=== PATIENT | female | born 1960 | race Caucasian/White ===

== ENCOUNTER 2017-04-01 13:16 | Inpatient (IN) | payer OTHER ==
[~2017-04-01] VITALS: Ht 154.9 cm; Wt 97.0 kg
[~2017-04-01 13:16] MED LIST: CYCL-319 PO; HYDR-3498 PO; NITR-58 PO
--- NOTE | 2017-04-01 16:33 | RADRPT ---
PROCEDURE: XR Chest. CLINICAL INDICATION: Shortness of breath TECHNIQUE: Single frontal view of the chest was obtained. COMPARISON: None. FINDINGS: The aortic arch is calcified. The heart and mediastinum are within normal limits. The lungs are clear. There is no significant pleural effusion or pneumothorax. IMPRESSION: No acute disease. Aortic atherosclerosis. RPTAT: EE Physician Natali Date Time Electronically viewed and signed by Xavier Kwan Physician on 04/01/2017 16:33 /
[2017-04-01 16:42] LABS: BASOPHIL # 0.1 10^3/ul (0.0-0.1); BASOPHILS % 0.8 % (0.0-2.0); EOSINOPHILS # 0.2 10^3/ul (0.0-0.5); EOSINOPHILS % 2.9 % (0.0-7.0); HEMATOCRIT 35.8 % (37.0-47.0); HEMOGLOBIN 12.1 g/dl (12.0-16.0); LYMPHOCYTES # 2.2 10^3/ul (0.8-2.9); LYMPHOCYTES % 36.1 % (15.0-51.0); MEAN CORPUSCULAR HEMOGLOBIN 28.8 pg (29.0-33.0); MEAN CORPUSCULAR HGB CONC 33.8 g/dl (32.0-37.0); MEAN CORPUSCULAR VOLUME 85.2 fl (82.0-101.0); MEAN PLATELET VOLUME 11.4 fl (7.4-10.4); MONOCYTE # 0.5 10^3/ul (0.3-0.9); MONOCYTES % 7.7 % (0.0-11.0); PLATELET COUNT 223 10^3/UL (140-415); RED CELL DISTRIBUTION WIDTH 14.2 % (11.5-14.5)
[2017-04-01 17:02] LABS: D-DIMER 435.06 ng/ml (<460)
[2017-04-01 17:10] LABS: CALCIUM 9.1 mg/dl (8.4-10.2); CREATININE 0.72 mg/dl (0.44-1.00); POTASSIUM 3.7 mmol/L (3.5-5.1)
[2017-04-01 17:24] LABS: TROPONIN-I 0.217 ng/ml (0.00-0.12)
--- NOTE | 2017-04-01 17:30 | ERD ---
ER Documentation Chief Complaint Date/Time DATE: 04/01/17 TIME: 17:25 Chief Complaint 1 WEEK WITH SOB FEET SWELLING VSS HPI This is a 57-year-old female presents to the ER with new onset shortness of breath that started last week. Patient also describes chest pressure which is constant. Shortness of breath and chest pressure are exertional and are better whenever she is resting. Patient does admit to palpitations. She does not have any family history of heart problems however there is family history of diabetes. Patient denies any fevers or chills. Patient did develop a cold 2 weeks ago and is still experiencing a runny nose, however denies a cough. Patient does have a past medical history of hypertension however denies diabetes. Patient states that she has had bilateral leg swelling over the last few months. Patient denies any recent travel, she denies any recent surgeries. ROS 12 point review of systems was done, all negative except per HPI. Medications Home Meds Active Scripts Nitrofurantoin Monohyd Macrocr* (Macrobid*) 100 Mg Capsr, 100 MG PO BID for 5 Days, CAP Prov:DARDENLIDA I. LEATHER [employer]ID[employer]KER 12/12/15 Hydrocodone Bit-Acetaminophen* ([place]*) 5-325 Mg Tab, 1 TAB PO Q6 Y for PAIN, # 7 TAB Prov:DARDENLIDA I. LEATHER [employer]KER 12/12/15 Cyclobenzaprine Hcl* (Cyclobenzaprine Hcl*) 10 Mg Tablet, 10 MG PO TID, #15 TAB Prov:DARDENLIDA I. LEATHER [employer]KER 12/12/15 Allergies Allergies: Coded Allergies: No Known Allergy (Unverified , 12/12/15) PMhx/Soc Medical and Surgical Hx: pt denies Medical Hx History of Surgery: No Anesthesia Reaction: No Hx Neurological Disorder: No Hx Respiratory Disorders: No Hx Cardiac Disorders: Yes (HTN, high cholesterol) Hx Psychiatric Problems: No Hx Miscellaneous Medical Probl: No Hx Alcohol Use: No Hx Substance Use: No Hx Tobacco Use: No Smoking Status: Never smoker Physical Exam Vitals Vital Signs Date Time Temp Pulse Resp B/P Pulse Ox O2 Delivery O2 Flow Rate FiO2 04/01/17 18:55 Nasal Cannula 2 04/01/17 18:43 76 20 152/82 99 Room Air 04/01/17 13:23 98.6 79 24 172/85 99 Physical Exam GENERAL: The patient is well developed and appropriate for usual state of health , in no apparent distress. HEENT: Atraumatic. Conjunctivae are pink. Pupils equal, round, and reactive to light. Extraocular muscles are grossly intact. Bilateral tympanic membranes are clear with no evidence of erythema, effusion or dulling of the light reflex. The oropharynx is clear with no erythema or exudates. NECK: C-spine is soft and supple. There is no cervical lymphadenopathy. CHEST: Clear to auscultation bilaterally. There are no rales, wheezes or rhonchi. HEART: Regular rate and rhythm. No murmurs, clicks, rubs or gallops. ABDOMEN: Soft, nontender and nondistended. Good bowel sounds. No rebound or guarding. No gross peritonitis. No gross organomegaly or masses. No Sarah sign or McBurney point tenderness. No pulsatile masses. BACK: No midline or flank tenderness. EXTREMITIES: Equal pulses bilaterally. There is no peripheral clubbing, cyanosis or edema. No focal swelling or erythema. Full range of motion. Grossly neurovascularly intact. NEURO: Alert and oriented. Cranial nerves II through XII are intact. Motor strength in all 4 extremities with 5/5 strength. Sensation grossly intact. Normal speech and gait. SKIN: There is no apparent rash or petechia. The skin is warm and dry. Result Diagram: 04/01/17 1625 04/01/17 1625 Results 24 hrs Laboratory Tests Test 04/01/17 16:25 White Blood Count 6.010^3/ul Red Blood Count 4.2010^6/ul Hemoglobin 12.1g/dl Hematocrit 35.8% Mean Corpuscular Volume 85.2fl Mean Corpuscular Hemoglobin 28.8pg Mean Corpuscular Hemoglobin Concent 33.8g/dl Red Cell Distribution Width 14.2% Platelet Count 24218^3/UL Mean Platelet Volume 11.4fl Neutrophils % 52.0% Lymphocytes % 36.1% Monocytes % 7.7% Eosinophils % 2.9% Basophils % 0.8% Nucleated Red Blood Cells % 0.0/100WBC Neutrophils # (Manual) 3.110^3/ul Lymphocytes # 2.210^3/ul Monocytes # 0.510^3/ul Eosinophils # 0.210^3/ul Basophils # 0.110^3/ul Nucleated Red Blood Cells # 0.010^3/ul Prothrombin Time 12.3Sec Prothrombin Time Ratio 1.0 INR International Normalized Ratio 0.91 Activated Partial Thromboplast Time 29.5Sec D-Dimer 435.06ng/ml D-Dimer Comment Sodium Level 142mmol/L Potassium Level 3.7mmol/L Chloride Level 108mmol/L Carbon Dioxide Level 25mmol/L Anion Gap 13 Blood Urea Nitrogen 8mg/dl Creatinine 0.72mg/dl Glucose Level 100mg/dl Calcium Level 9.1mg/dl Troponin I 0.217ng/ml B-Type Natriuretic Peptide 185PG/ML Current Medications Medications (Trade) Dose Ordered Sig/Ethel Route PRN Reason Start Time Stop Time Status Last Admin Dose Admin Aspirin (Aspirin) 325 mg ONCE STAT PO 04/01/17 18:17 04/01/17 18:39 DC Nitroglycerin (Nitroglycerin (Sl Tab) 0.4 Mg) 1 tab Q5M UP TO 3 DOSES PRN SL CHEST PAIN 04/01/17 18:30 Morphine Sulfate (morphine) 4 mg ONCE STAT IV 04/01/17 18:17 04/01/17 18:19 DC 04/01/17 18:42 Aspirin (Aspirin) 325 mg ONCE STAT PO 04/01/17 18:21 04/01/17 18:22 DC 04/01/17 18:41 Enoxaparin Sodium (Lovenox) 100 mg ONCE ONCE SC 04/01/17 18:30 04/01/17 18:31 DC 04/01/17 18:43 Nitroglycerin (Nitroglycerin 2% Oint) 1 inch ONCE STAT TD 04/01/17 18:21 04/01/17 18:22 DC 04/01/17 18:42 Procedures/MDM EKG 59 BPM sinus bradycardia, no ST elevation or t wave inversion Differential diagnosis includes but is not limited to; STEMI, dissection, pneumothorax, PE, esophageal rupture, tamponade, pneumonia, pericarditis, GERD, musculoskeletal, endocarditis, anxiety. Departure Diagnosis: Primary Impression: Shortness of breath Condition: Stable SLOAN KASPER Apr 01, 2017 17:30
[2017-04-01] MEDS ORDERED: morphine 4 MG/ML VIAL IV STA (18:17)
[2017-04-01] MEDS ORDERED: ASPIRIN 325 MG TAB PO STA ×2 (18:17→18:21)
[2017-04-01] MEDS ORDERED: NITROGLYCERIN 2% 1 GM OINT PKT TD STA (18:21)
[2017-04-01] MEDS ORDERED: ENOXAPARIN 100 MG/ML SYG SC ONE (18:30)
[2017-04-01] MEDS ORDERED: NITROGLYCERIN (SL) 0.4 MG TAB SL PRN (18:30)
[2017-04-01 18:36] LABS: INR 0.91; PROTIME 12.3 Sec (12.2-14.2)
[2017-04-01 18:37] LABS: PARTIAL THROMBOPLASTIN TIME 29.5 Sec (25.0-35.0)
--- NOTE | 2017-04-01 19:37 | ERA ---
ER Documentation Chief Complaint Date/Time DATE: 04/01/17 TIME: 19:34 Chief Complaint 1 WEEK WITH SOB FEET SWELLING VSS HPI This is a 57-year-old female complains of some exertional angina over the past 7 -10 days. She said when she walks she gets a pressure in her chest difficulty breathing is diaphoresis. She says she has to stop walking in the chest pain will eventually subside. She says that she is gradually getting worse and the pain is stronger and longer. This is a new symptom for her. She has a history of hypertension high cholesterol and quit smoking 5 years ago. She also says she is complaining of some mild ankles ROS All systems reviewed and are negative except as per history of present illness. Medications Home Meds Active Scripts Nitrofurantoin Monohyd Macrocr* (Macrobid*) 100 Mg Capsr, 100 MG PO BID for 5 Days, CAP Prov:DARDENLIDA I. CAN BANDER OPERATOR 12/12/15 Hydrocodone Bit-Acetaminophen* ([place]*) 5-325 Mg Tab, 1 TAB PO Q6 Y for PAIN, # 7 TAB Prov:LIDA DARDEN I. CAN BANDER OPERATOR 12/12/15 Cyclobenzaprine Hcl* (Cyclobenzaprine Hcl*) 10 Mg Tablet, 10 MG PO TID, #15 TAB Prov:DARDENLIDA NAVARRETE I. CAN BANDER OPERATOR 12/12/15 Allergies Allergies: Coded Allergies: No Known Allergy (Unverified , 12/12/15) PMhx/Soc Medical and Surgical Hx: pt denies Medical Hx History of Surgery: No Anesthesia Reaction: No Hx Neurological Disorder: No Hx Respiratory Disorders: No Hx Cardiac Disorders: Yes (HTN, high cholesterol) Hx Psychiatric Problems: No Hx Miscellaneous Medical Probl: No Hx Alcohol Use: No Hx Substance Use: No Hx Tobacco Use: No Smoking Status: Never smoker FmHx Family History: No coronary disease Physical Exam Vitals Vital Signs Date Time Temp Pulse Resp B/P Pulse Ox O2 Delivery O2 Flow Rate FiO2 04/01/17 18:55 Nasal Cannula 2 04/01/17 18:43 76 20 152/82 99 Room Air 04/01/17 13:23 98.6 79 24 172/85 99 Physical Exam Const: Well-developed, well-nourished Head: Atraumatic, normocephalic Eyes: Normal Conjunctiva, PERRLA, EOMI, normal sclera, no nystagmus ENT: Normal External Ears, Nose and Mouth, moist mucus membranes. Neck: Full range of motion. No meningismus, no lymphadenopathy. Resp: Clear to auscultation bilaterally, no wheezing, rhonchi, rales Cardio: Regular rate and rhythm, no murmurs, S1 S2 present Abd: Soft, non tender x 4, non distended. Normal bowel sounds, no guarding or rebound, no pulsitile abdominal masses or bruits Skin: No petechiae or rashes, no ecchymosis , no maculopapular rash Back: No midline or flank tenderness Ext: No cyanosis, or edema, FROM x 4, normal inspection, neurovascularly intact x 4 Neur: Awake and alert, STR 5/5 x 4, sensation intact x 4, no focal findings, cerebellum intact Psych: Normal Mood and Affect Result Diagram: 04/01/17 1625 04/01/17 1625 Results 24 hrs Laboratory Tests Test 04/01/17 16:25 White Blood Count 6.010^3/ul Red Blood Count 4.2010^6/ul Hemoglobin 12.1g/dl Hematocrit 35.8% Mean Corpuscular Volume 85.2fl Mean Corpuscular Hemoglobin 28.8pg Mean Corpuscular Hemoglobin Concent 33.8g/dl Red Cell Distribution Width 14.2% Platelet Count 10940^3/UL Mean Platelet Volume 11.4fl Neutrophils % 52.0% Lymphocytes % 36.1% Monocytes % 7.7% Eosinophils % 2.9% Basophils % 0.8% Nucleated Red Blood Cells % 0.0/100WBC Neutrophils # (Manual) 3.110^3/ul Lymphocytes # 2.210^3/ul Monocytes # 0.510^3/ul Eosinophils # 0.210^3/ul Basophils # 0.110^3/ul Nucleated Red Blood Cells # 0.010^3/ul Prothrombin Time 12.3Sec Prothrombin Time Ratio 1.0 INR International Normalized Ratio 0.91 Activated Partial Thromboplast Time 29.5Sec D-Dimer 435.06ng/ml D-Dimer Comment Sodium Level 142mmol/L Potassium Level 3.7mmol/L Chloride Level 108mmol/L Carbon Dioxide Level 25mmol/L Anion Gap 13 Blood Urea Nitrogen 8mg/dl Creatinine 0.72mg/dl Glucose Level 100mg/dl Calcium Level 9.1mg/dl Troponin I 0.217ng/ml B-Type Natriuretic Peptide 185PG/ML Current Medications Medications (Trade) Dose Ordered Sig/Ethel Route PRN Reason Start Time Stop Time Status Last Admin Dose Admin Aspirin (Aspirin) 325 mg ONCE STAT PO 04/01/17 18:17 04/01/17 18:39 DC Nitroglycerin (Nitroglycerin (Sl Tab) 0.4 Mg) 1 tab Q5M UP TO 3 DOSES PRN SL CHEST PAIN 04/01/17 18:30 Morphine Sulfate (morphine) 4 mg ONCE STAT IV 04/01/17 18:17 04/01/17 18:19 DC 04/01/17 18:42 Aspirin (Aspirin) 325 mg ONCE STAT PO 04/01/17 18:21 04/01/17 18:22 DC 04/01/17 18:41 Enoxaparin Sodium (Lovenox) 100 mg ONCE ONCE SC 04/01/17 18:30 04/01/17 18:31 DC 04/01/17 18:43 Nitroglycerin (Nitroglycerin 2% Oint) 1 inch ONCE STAT TD 04/01/17 18:21 04/01/17 18:22 DC 04/01/17 18:42 Procedures/MDM EKG: Rate/Rhythm: Normal Sinus Rhythm,NL intervals QRS, ST, QT: NORMAL WI, QRS, QT] Impression: NORMAL EKG PROCEDURE: XR Chest. CLINICAL INDICATION: Shortness of breath TECHNIQUE: Single frontal view of the chest was obtained. COMPARISON: None. FINDINGS: The aortic arch is calcified. The heart and mediastinum are within normal limits. The lungs are clear. There is no significant pleural effusion or pneumothorax. IMPRESSION: No acute disease. Aortic atherosclerosis. RPTAT: EE Physician Natali Date Time Electronically viewed and signed by Xavier Kwan Physician on 04/01/2017 16:33 RA/ CC: SLOAN KASPER Patient received aspirin, Lovenox, nitroglycerin paste. The patient admitted to telemetry as spoke with the admitting physician consulted Dr. Lewis Patient is having exertional angina with positive troponin. Critical Care Time: 30 minutes Treatments/Evaluations: Close monitoring and treatment of unstable vital signs, cardiorespiratory, and neurologic status, while maintaining tight balance of fluid, respiratory, and cardiac interventions. This time includes discussing the case with the patient and the patient's family. This time does not include all procedures stated elsewhere in this record. This time also includes reviewing old records, labs and radiological studies. This time includes examining and re-examining the patient. Additionally, this time also includes arranging care with admitting and consulting physicians. Departure Diagnosis: Primary Impression: Non-STEMI (non-ST elevated myocardial infarction) Condition: Stable DELGADO HALEY DO Apr 01, 2017 19:37
[2017-04-01] MEDS ORDERED: HYDR-3671 PO (19:38)
[2017-04-01] MEDS ORDERED: IBUP-1542 PO (19:39)
[2017-04-01] MEDS ORDERED: ONDANSETRON 4 MG INJ IV PRN ×2 (20:00→23:30)
[2017-04-01] MEDS ORDERED: ACETAMINOPHEN 325 MG TAB PO PRN ×2 (20:00→23:30)
[2017-04-01 20:35] VITALS: PULSE 63
[2017-04-01 22:03] VITALS: BP 137/73; RESP 20
[2017-04-01 22:55] VITALS: Ht 154.9 cm; Wt 97.0 kg
[2017-04-01] MEDS ORDERED: D5W-0.45 NACL + KCL 40 MEQ 1,000 ML IV SCH (23:30)
[2017-04-02] VITALS (25 sets, daily range): BP systolic 85–164; BP diastolic 51–128; PULSE 58–92; RESP 13–24
[2017-04-02] MEDS: ATORVASTATIN 80 MG TAB PO SCH ×2 (00:45→22:13)
[2017-04-02] MEDS: METOPROLOL 25 MG TAB PO SCH ×3 (00:47→22:13)
[2017-04-02] MEDS: D5W-0.45 NACL + KCL 40 MEQ 1,000 ML IV SCH ×2 (01:09→09:41)
--- NOTE | 2017-04-02 02:01 | QN ---
Documentation Comment H&P dict a/p 1. cards: dyspnea on exertion, now with mildly positive trop, await cards, cont treatment for CAD with asa, lovenox, metop and lipitor, check echo 2. htn 3. hyperlipidemia HEATHER MOORE MD Apr 02, 2017 02:01
[2017-04-02 02:04] LABS: CK-MB 1.74 ng/ml (0.0-2.4)
[2017-04-02 02:09] LABS: TROPONIN-I 0.207 ng/ml (0.00-0.12)
--- NOTE | 2017-04-02 03:03 | HP ---
DATE OF ADMISSION: 04/01/2017 CHIEF COMPLAINT: Shortness of breath. HISTORY OF PRESENT ILLNESS: The patient presents to the emergency room at [facility] with a 1-week history of increasing shortness of breath and dyspnea on exertion. She states that over this period of time if she does any walking or work she gets somewhat short of breath. She does not endorse any chest pain, pressure, or discomfort. States, however, that just walking and shortness of breath make her stop and catch her breath. She denies any recent illness. Denies any fever or chills. Denies any pleuritic-type chest pain. PAST MEDICAL HISTORY: Significant for hypertension, hyperlipidemia. MEDICATIONS: An outpatient include: 1. Hydralazine. 2. Ibuprofen. ALLERGIES: TO CODEINE. SOCIAL HISTORY: Patient lives with her friend in [place]. She is independent of activities of daily living. Does a lot of walking to catch the bus. 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 FAMILY HISTORY: Noncontributory. REVIEW OF SYSTEMS: Five systems were reviewed and found not to be revealing. PHYSICAL EXAMINATION: VITAL SIGNS: On examination, blood pressure is 137/73, pulse rate 67, respirations 20, temperature is 97.9. GENERAL: Pleasant woman, no acute distress. Alert, oriented x3. HEENT: Normocephalic, atraumatic. Without any scleral icterus, perioral cyanosis. Mucous membranes moist. NECK: Soft and supple, without masses. No jugular venous distension or carotid bruits. CHEST: Clear to auscultation percussion bilaterally. HEART: Regular rate, rhythm. S1, S2. No added sounds. ABDOMEN: Soft, nontender, nondistended, without palpable hepatosplenomegaly. EXTREMITIES: Without clubbing, cyanosis, or edema. SKIN: Without rashes. NEUROLOGIC: Grossly intact. LABORATORY STUDIES: Reveal a hemoglobin of 12.1 g/dL, white count of 6000, platelets of 223,000. INR is 1.0. Sodium is 142, potassium 3.7, chloride 108, bicarbonate 25, BUN 8, creatinine 0.72, glucose 100. Troponin is 0.2176, it is approximately 2 times the upper limit of normal. BNP is 185. ASSESSMENT AND PLAN: 1. Cardiac: The patient with dyspnea and elevation in troponin. Await serial values. We will obtain cardiology evaluation, Dr. Barragan, has been contacted per the emergency room. Continue treatment for possible acute coronary syndrome with aspirin, Lipitor, metoprolol, and Lovenox. Await determination per Cardiology, if or if not stress testing versus angiogram will be undertaken. 2. Hypertension, controlled. 3. Hyperlipidemia. Dictated By: Mervin Connolly MD /pal/ivonne /Document#: [id number]
[2017-04-02] MEDS: ASPIRIN 81 MG TAB PO SCH (08:37)
[2017-04-02] MEDS ORDERED: ENOXAPARIN 100 MG/ML SYG SC SCH (09:00)
[2017-04-02 09:31] LABS: CK-MB 1.41 ng/ml (0.0-2.4)
[2017-04-02 09:34] LABS: TROPONIN-I 0.195 ng/ml (0.00-0.12)
[2017-04-02 10:37] LABS: ALBUMIN 3.1 g/dl (3.3-4.9); BILIRUBIN,INDIRECT 0.5 mg/dl (0-1.1); BILIRUBIN,TOTAL 0.5 mg/dl (0.2-1.3); CHOL/HDL RATIO 4.1 RATIO; TOTAL PROTEIN 6.1 g/dl (6.1-8.1)
[2017-04-02] MEDS ORDERED: NITROGLYCERIN 2% 1 GM OINT PKT TD ONE (11:00)
--- NOTE | 2017-04-02 11:18 | PN ---
Date/Time of Note Date/Time of Note DATE: 04/02/17 TIME: 10:50 Assessment/Plan VTE Prophylaxis VTE Prophylaxis Intervention: LMWH Lines/Catheters IV [facility]ter [facility] Peripheral IV Assessment/Plan Assessment/Plan 57-year-old female with: 1. NSTEMI: 2D echocardiogram done, cardiac enzymes trended back down. Dr. Barragan has been consulted and patient currently n.p.o. She mostly complains of chest pressure, dyspnea on exertion and lower extremity edema the past few days Also reports feeling "sick" prior to the onset of these symptoms. Follow-up 2D echocardiogram to evaluate this patient does have cardiomyopathy. Cardiac enzymes trending down. Continue Lovenox, statins, beta-blockers if tolerated and also on aspirin for medical treatment. Follow-up cardiology recommendations. 2. Hypertension, controlled with current regimen, patient reports that she was not tolerating hydralazine well. 3. Hyperlipidemia: Continue statin therapy, given abnormal LFTs, check liver ultrasound. Prophylaxis: Patient already on Lovenox for treatment of an STEMI, Pepcid for GI prophylaxis Disposition: Follow-up cardiology recommendations. Patient currently n.p.o. in case she needs cardiac cath today. Subjective 24 Hr Interval Summary Free Text/Dictation Patient having ongoing shortness of breath on and off, and lower extremity edema , she reports mild chest pressure. Cardiac enzymes are trending down. 2D echocardiogram is done, awaiting cardiology recommendation for cardiac cath. Patient on Lovenox. Exam/Review of Systems Vital Signs Vitals Vital Signs Date Time Temp Pulse Resp B/P Pulse Ox O2 Delivery O2 Flow Rate FiO2 04/02/17 08:39 64 04/02/17 07:43 98.3 18 116/57 94 04/01/17 20:14 Room Air 04/01/17 18:55 2 Intake and Output 04/01/17 04/01/17 04/02/17 15:00 23:00 07:00 Intake Total 900 ml Balance 900 ml Exam Constitutional: alert, oriented, well developed Cardiovascular: nl pulses, regular rate and rhythm Gastrointestinal: non-tender, soft Musculoskeletal: nl extremities to inspection, nl gait and stance, other (No edema, clubbing or cyanosis) Neurological: DIRECTOR OF EMERGENCY NURSING II-XII intact, nl mental status, nl speech, nl strength Results Result Diagram: 04/01/17 1625 04/01/17 1625 Results 24 hrs Laboratory Tests Test 04/01/17 16:25 04/02/17 00:38 04/02/17 07:48 White Blood Count 6.0 Red Blood Count 4.20 Hemoglobin 12.1 Hematocrit 35.8 L Mean Corpuscular Volume 85.2 Mean Corpuscular Hemoglobin 28.8 L Mean Corpuscular Hemoglobin Concent 33.8 Red Cell Distribution Width 14.2 Platelet Count 223 Mean Platelet Volume 11.4 H Neutrophils % 52.0 Lymphocytes % 36.1 Monocytes % 7.7 Eosinophils % 2.9 Basophils % 0.8 Nucleated Red Blood Cells % 0.0 Neutrophils # (Manual) 3.1 Lymphocytes # 2.2 Monocytes # 0.5 Eosinophils # 0.2 Basophils # 0.1 Nucleated Red Blood Cells # 0.0 Prothrombin Time 12.3 Prothrombin Time Ratio 1.0 INR International Normalized Ratio 0.91 Activated Partial Thromboplast Time 29.5 D-Dimer 435.06 D-Dimer Comment Sodium Level 142 Potassium Level 3.7 Chloride Level 108 Carbon Dioxide Level 25 Anion Gap 13 Blood Urea Nitrogen 8 Creatinine 0.72 Glucose Level 100 Calcium Level 9.1 Troponin I 0.217 *H 0.207 *H 0.195 *H B-Type Natriuretic Peptide 185 H Creatine Kinase 58 52 Creatine Kinase Index 3.0 2.7 Creatinine Kinase MB (Mass) 1.74 1.41 Total Bilirubin 0.5 Direct Bilirubin 0.00 Indirect Bilirubin 0.5 Aspartate Amino Transf (AST/SGOT) 142 H Alanine Aminotransferase (ALT/SGPT) 130 H Alkaline Phosphatase 131 H Total Protein 6.1 Albumin 3.1 L Triglycerides Level 121 Cholesterol Level 164 LDL Cholesterol, Calculated 100 HDL Cholesterol 40 Cholesterol/HDL Ratio 4.1 Medications Medications Current Medications Metoprolol Tartrate (Lopressor) 25 mg BID PO Last administered on 04/02/17 08: 37; Admin Dose 25 MG; Start 04/01/17 at 23:30 Atorvastatin Calcium (Lipitor) 80 mg HS PO Last administered on 04/02/17 00:45 ; Admin Dose 80 MG; Start 04/01/17 at 23:30 Aspirin (Aspirin) 81 mg DAILY PO Last administered on 04/02/17 08:37; Admin Dose 81 MG; Start 04/02/17 at 09:00 Enoxaparin Sodium (Lovenox) 95 mg Q12 SC ; Start 04/02/17 at 09:00 Acetaminophen (Tylenol Tab) 650 mg Q4H PRN PO PAIN AND OR ELEVATED TEMP Last administered on 04/02/17 00:45; Admin Dose 650 MG; Start 04/01/17 at 23:30 Ondansetron HCl 4 mg 4 mg Q4H PRN IV NAUSEA AND/OR VOMITING; Start 04/01/17 at 23:30 Potassium Chloride/Dextrose/ Sod Cl (D5-1/2ns + KCl 40 Meq) 1,000 ml @ 100 mls/ hr Q10H IV Last administered on 04/02/17 01:09; Admin Dose 100 MLS/HR; Start at 23:41 Procedures Procedures PROCEDURE: XR Chest. CLINICAL INDICATION: Shortness of breath TECHNIQUE: Single frontal view of the chest was obtained. COMPARISON: None. FINDINGS: The aortic arch is calcified. The heart and mediastinum are within normal limits. The lungs are clear. There is no significant pleural effusion or pneumothorax. IMPRESSION: No acute disease. Aortic atherosclerosis. MILA HAMLIN Apr 02, 2017 11:18
--- NOTE | 2017-04-02 11:45 | RADRPT ---
PROCEDURE: US Abdomen (right upper quadrant). CLINICAL INDICATION: Abnormal LFTs. TECHNIQUE: Multiple real-time longitudinal and transverse images of the right upper quadrant of th e abdomen were acquired utilizing a curved array transducer. Images were reviewed on a high-resoluti on PACS workstation. COMPARISON: None FINDINGS: The liver is normal in size and demonstrates mildly increased echogenicity without focal mass or int rahepatic biliary dilatation. The gallbladder is surgically absent. No intra or extrahepatic bilia ry dilatation is seen. The common bile duct measures 8 mm in maximal dimension. The visualized por tions of the pancreas are unremarkable with obscuration of the tail of the pancreas. No free fluid is identified. The right kidney measures 10.1 cm in length. There is normal echogenicity within the right kidney. There is no perinephric fluid collection. No hydronephrosis, mass, or calculus is seen. IMPRESSION: 1. Mildly increased hepatic echogenicity, suggesting steatosis. 2. Status post cholecystectomy with likely compensatory prominence of the CBD. RPTAT: EE .Anil Gardner MD, MD Date Time Electronically viewed and signed by .Anil Gardner MD, on 04/02/2017 11:45 .A/
[2017-04-02] MEDS ORDERED: METOPROLOL 25 MG TAB PO STA (12:44)
--- NOTE | 2017-04-02 12:52 | CONS ---
Date/Time of Note Date/Time of Note DATE: 04/02/17 TIME: 12:51 Assessment/Plan Assessment/Plan Additional Assessment/Plan Elevated troponin Dyspnea Hypertension -Patient with complaints of body aches, shortness of breath and fatigue with mildly elevated troponin. Her chest discomfort is reproducible and worse with cough. Troponins are trending down and CK has remained negative. Check echocardiogram, continue aspirin and statin therapy, based on above results, will decide to proceed with cardiac catheterization versus further noninvasive study. Consultation Date/Type/Reason Admit Date/Time Apr 01, 2017 at 19:33 Type of Consultation: cv Reason for Consultation Elevated troponin Hx of Present Illness This is a 57-year-old female with past medical history of hypertension who presents with complaints of shortness of breath, fatigue and body aches. Patient states over the past 2 weeks, she has been having symptoms of body aches and chills. She also complains of symptoms of dyspnea. Dyspnea is present at rest also worsens with exertion. He denies any chest discomfort except with coughing and pushing on her chest and abdomen. She does complain of overall not feeling well. She denies any history of cardiac problems in the past. 12 point review of systems was performed with all pertinent positives and negatives mentioned above and all else is negative Past Medical History Medical History: hypertension Family History Significant Family History: no pertinent family hx Social History Smoking Status: Former smoker Other Social History Lives at home Exam/Review of Systems Vital Signs Vitals Vital Signs Date Time Temp Pulse Resp B/P Pulse Ox O2 Delivery O2 Flow Rate FiO2 04/02/17 12:32 70 04/02/17 11:32 98.6 19 105/51 98 04/01/17 20:14 Room Air 04/01/17 18:55 2 Intake and Output 04/01/17 04/01/17 04/02/17 15:00 23:00 07:00 Intake Total 900 ml Balance 900 ml Exam No apparent distress Constitutional: alert, obese, oriented Head: normocephalic Respiratory: other Cardiovascular: other (S1-S2 heard), regular rate and rhythm Gastrointestinal: bowel sounds, non-tender, soft Extremities: edema (Trace) Results Result Diagram: 04/01/17 1625 04/01/17 1625 Results 24 hrs Laboratory Tests Test 04/01/17 16:25 04/02/17 00:38 04/02/17 07:48 White Blood Count 6.0 Red Blood Count 4.20 Hemoglobin 12.1 Hematocrit 35.8 L Mean Corpuscular Volume 85.2 Mean Corpuscular Hemoglobin 28.8 L Mean Corpuscular Hemoglobin Concent 33.8 Red Cell Distribution Width 14.2 Platelet Count 223 Mean Platelet Volume 11.4 H Neutrophils % 52.0 Lymphocytes % 36.1 Monocytes % 7.7 Eosinophils % 2.9 Basophils % 0.8 Nucleated Red Blood Cells % 0.0 Neutrophils # (Manual) 3.1 Lymphocytes # 2.2 Monocytes # 0.5 Eosinophils # 0.2 Basophils # 0.1 Nucleated Red Blood Cells # 0.0 Prothrombin Time 12.3 Prothrombin Time Ratio 1.0 INR International Normalized Ratio 0.91 Activated Partial Thromboplast Time 29.5 D-Dimer 435.06 D-Dimer Comment Sodium Level 142 Potassium Level 3.7 Chloride Level 108 Carbon Dioxide Level 25 Anion Gap 13 Blood Urea Nitrogen 8 Creatinine 0.72 Glucose Level 100 Calcium Level 9.1 Troponin I 0.217 *H 0.207 *H 0.195 *H B-Type Natriuretic Peptide 185 H Creatine Kinase 58 52 Creatine Kinase Index 3.0 2.7 Creatinine Kinase MB (Mass) 1.74 1.41 Hemoglobin A1c 5.4 Total Bilirubin 0.5 Direct Bilirubin 0.00 Indirect Bilirubin 0.5 Aspartate Amino Transf (AST/SGOT) 142 H Alanine Aminotransferase (ALT/SGPT) 130 H Alkaline Phosphatase 131 H Total Protein 6.1 Albumin 3.1 L Triglycerides Level 121 Cholesterol Level 164 LDL Cholesterol, Calculated 100 HDL Cholesterol 40 Cholesterol/HDL Ratio 4.1 Medications Medications Current Medications Metoprolol Tartrate (Lopressor) 25 mg BID PO Last administered on 04/02/17 08: 37; Admin Dose 25 MG; Start 04/01/17 at 23:30 Atorvastatin Calcium (Lipitor) 80 mg HS PO Last administered on 04/02/17 00:45 ; Admin Dose 80 MG; Start 04/01/17 at 23:30 Aspirin (Aspirin) 81 mg DAILY PO Last administered on 04/02/17 08:37; Admin Dose 81 MG; Start 04/02/17 at 09:00 Enoxaparin Sodium (Lovenox) 95 mg Q12 SC ; Start 04/02/17 at 09:00 Acetaminophen (Tylenol Tab) 650 mg Q4H PRN PO PAIN AND OR ELEVATED TEMP Last administered on 04/02/17 00:45; Admin Dose 650 MG; Start 04/01/17 at 23:30 Ondansetron HCl 4 mg 4 mg Q4H PRN IV NAUSEA AND/OR VOMITING; Start 04/01/17 at 23:30 Potassium Chloride/Dextrose/ Sod Cl (D5-1/2ns + KCl 40 Meq) 1,000 ml @ 100 mls/ hr Q10H IV Last administered on 04/02/17 01:09; Admin Dose 100 MLS/HR; Start at 23:41 Famotidine (Pepcid) 20 mg BID PO ; Start 04/02/17 at 21:00 Procedures Procedures ECG done yesterday demonstrates sinus bradycardia 59 bpm, QRS 94 ms, no significant ischemic ST or T-wave abnormalities Renny Barragan DO Apr 02, 2017 12:52
[2017-04-02] MEDS ORDERED: NITROGLYCERIN AEROSOL (4.9 GM) ONE (13:56)
[2017-04-02] MEDS ORDERED: IOHEXOL 100 ML ONE (14:00)
[2017-04-02] MEDS ORDERED: SOD CHLORIDE 0.9% 100 ML ONE (14:00)
--- NOTE | 2017-04-02 15:15 | RADRPT ---
Echocardiogram Report Patient Name: SAVANNAH TUCKER M Gender: Female Date: 1960 Study Date: 02-Apr-2017 Medical Pathology Teacher: Suri Ocampo [facility] Location: 5554 Ref. Physician: HEATHER MOORE Quality: Good Procedures: Transthoracic echocardiogram with complete 2D, M-Mode, and doppler examination. Indications: Dyspnea. 2D/M Mode Doppler Measurement Value Normal Ranges Measurement Value Normal Ranges LVIDd 2D 4.7 3.5 - 5.6 cm JONO Vmax 1.8 cm2 LVIDs 2D 2.9 2.1 - 4.1 cm JONO VTI 1.8 cm2 LVPWd 2D 1.0 0.6 - 1.1 cm AV Mean Barry 1.4 m/sec IVSd 2D 1.0 0.6 - 1.1 cm AV Mean PG 8.9 mmHg AoR Diam 2D 2.2 2.0 - 3.7 cm AV Peak Barry 2.0 m/sec EDV 2D 101.7 cm3 AV Peak PG 16.3 mmHg ESV 2D 24.9 cm3 AV VTI 47.3 cm LA Dimen 2D 3.2 2.3 - 4.0 cm LVOT Mean Barry 0.8 m/sec LVOT Diam 2.0 cm LVOT Mean PG 2.9 mmHg LVOT Peak Barry 1.1 m/sec LVOT Peak PG 5.1 mmHg LVOT VTI 24.2 cm MV E Peak Barry 0.8 m/sec MV A Peak Barry 1.0 m/sec MV E/A 0.9 MV Decel Time 209 msec MV Decel [place] 4 MV E/A 0.9 TR Peak Barry 2.2 m/sec TR Peak PG 20.0 mmHg RVSP 23.0 mmHg Findings Left Ventricle: Normal left ventricular systolic function. Normal left ventricular cavity size. Normal left ventricular wall thickness. Ejection fraction is visually estimated at 55 %. Tissue Doppler/Mitral Doppler indices are consistent with impaired relaxation (Stage I diastolic dysfunction). Right Ventricle: Normal right ventricular size. Normal right ventricular systolic function. Left Atrium: The left atrium is normal in size. Right Atrium: The right atrium is normal in size. Mitral Valve: Mitral valve leaflets appear mildly thickened. Mild mitral annular calcification. Mild mitral valve regurgitation. Aortic Valve: Aortic sclerosis without stenosis. No aortic regurgitation. Tricuspid Valve: Normal appearance and function of the tricuspid valve with trace physiologic regurgitation. Normal right ventricular systolic pressure. Estimated peak PA systolic pressure 23 mmHg. Pulmonic Valve: Normal pulmonic valve appearance. Pericardium: Normal pericardium with no significant pericardial effusion. Aorta: Normal aortic root. IVC: Normal size and normal respiratory collapse consistent with normal right atrial pressure. Conclusions 1.Normal left ventricular systolic function. Normal left ventricular cavity size. Normal left ventricular wall thickness. Ejection fraction is visually estimated at 55 %. Tissue Doppler/Mitral Doppler indices are consistent with impaired relaxation (Stage I diastolic dysfunction). 2.Normal right ventricular size. Normal right ventricular systolic function. 3.The left atrium is normal in size. 4.The right atrium is normal in size. 5.Mild mitral valve regurgitation. 6.Aortic sclerosis without stenosis. No aortic regurgitation. 7.Normal pericardium with no significant pericardial effusion. Electronically Signed By: Renny Barragan 02-Apr-2017 15:14:02 -0700 Patient Name: SAVANNAH TUCKER M Study Date: 02-Apr-2017 [id number]
[2017-04-02] MEDS ORDERED: IODIXANOL LOCM 100 ML BTL ONE (16:52)
[2017-04-02] MEDS ORDERED: HEPARIN 1000 UNITS/ML 10 ML INJ ONE (16:52)
[2017-04-02] MEDS ORDERED: NITROGLYCERIN (IC) 100 MCG/ML INJ ONE (16:52)
[2017-04-02] MEDS ORDERED: MIDAZOLAM 1 MG/ML 2 ML INJ ONE ×2 (16:52→17:38)
[2017-04-02] MEDS ORDERED: LIDOCAINE 1% (MDV) 20 ML INJ ONE (16:52)
[2017-04-02] MEDS ORDERED: FENTAnyl 50 MCG/ML VIAL ONE (16:52)
[2017-04-02] MEDS ORDERED: VERAPAMIL 5 MG INJ ONE (16:52)
[2017-04-02] MEDS ORDERED: ASPIRIN 81 MG TAB ONE (17:48)
[2017-04-02] MEDS ORDERED: CLOPIDOGREL 300 MG TAB ONE (17:48)
[2017-04-02] MEDS ORDERED: SOD CHLORIDE 0.9% 1,000 ML IV SCH (18:08)
--- NOTE | 2017-04-02 18:15 | OPR ---
Date/Time of Note Date/Time of Note DATE: 04/02/17 TIME: 18:10 Operative Report Procedure Date: Apr 02, 2017 Preoperative Diagnosis Non-ST elevation [place] Postoperative Diagnosis Obstructive coronary artery disease Operation Performed Left heart catheterization Right and left coronary angiogram Interpretation and supervision of right left coronary angiogram Left ventricular pressure measurements PCI of the mid RCA with placement of a 2.5 x 20 mm Synergy drug-eluting stent, postdilated to 3.1 mm Conscious sedation Right radial artery approach Surgeon: Renny Barragan DO Anesthesia Type: other (Conscious sedation) Estimated Blood Loss: minimal Complications: no Pt Condition Post Procedure: stable Disposition: PACU Indications Myocardial infarction Operative\Procedure Findings Hemodynamics LV pressure 167/8 with EDP of 25 Aortic pressure on pullback was 155/77 Coronary anatomy Left main is a large caliber vessel with no significant disease LAD is a medium to large caliber vessel mid 10% stenosis, distal 10% stenosis Circumflex a medium caliber vessel with proximal 20% stenosis, distal 10% stenosis RCA is a medium caliber vessel and dominant with a mid diffuse area of stenosis worse being 90% Procedure Description Patient was brought to the Desktop Technician after informed consent. Patient was prepped and draped as per protocol. Right radial access was obtained with ultrasound guidance and a 5/6 American sheath was placed in the right radial artery. A 5 American Earlimart catheter was used to engage the left main and angiogram was performed as well as the RCA and angiogram was performed. Given severe disease noted in the RCA, intervention was performed with the same setting. Angiomax was used for anticoagulation. A 6 American JR4 guide catheter was used to engage the RCA. A run-through wire was used to cross the lesion. The lesion was predilated and stented with the synergy 2.5 x 20 mm drug-eluting stent. This was postdilated with a 3.0 noncompliant balloon at high pressure. There was an excellent angiographic result with JOSHUA-3 flow with no evidence of dissection. We next cross the aortic valve into the left ventricle and pressure measurements were obtained as well as pullback. There was no immediate complications Renny Barragan DO Apr 02, 2017 18:15
[2017-04-02] MEDS ORDERED: ACETAMINOPHEN 325 MG TAB PO PRN (18:30)
[2017-04-02] MEDS ORDERED: ONDANSETRON 4 MG INJ IV PRN (18:30)
[2017-04-02] MEDS ORDERED: AL HYDROX/MG HYDROX/SIMETH 30 ML CUP PO PRN (18:30)
--- NOTE | 2017-04-02 19:42 | RADRPT ---
PROCEDURE: CTA of the heart and coronary arteries. CLINICAL INDICATION: Chest pain COMPARISON: No previous relevant images are available for comparison. TECHNIQUE: Multiphasic ECG-gated volumetric acquisition from the ascending aorta to the diaphragm pe rformed with intravenous contrast on a high-resolution multi detector scanner with multiphasic recon structions. Multiplanar reconstructions, three-dimensional reconstructions, as well as maximal inten sity projection images are produced and reviewed. One or more of the following dose reduction techni ques were used: Automated exposure control; Adjustment of the mA and/or kV according to patient size ; Use of iterative reconstruction technique; ECG dose modulation. CTDI = 10, 2, 27, 83 mGy. DLP = 15 44 mGy-cm. Stenosis classification of vessels greater than 1.5 mm in diameter: None 0%, Minimal 1-24%, Mild 25- 49%, Moderate 50-69%, Severe 70-99%, Occluded 100% CONTRAST: 100 mL of Omnipaque 350 intravenously without adverse event. FINDINGS: Overall exam quality and angiographic enhancement: Excellent. Origins and course of the coronary arteries: Normal. Coronary artery system dominance pattern: Right. Total calcium score: 283.3 Not fully diagnostic segments due to artifacts: None. RCA: Focal loss of visualization over a length of 3 mm in the proximal - mid segment of the vessel. Remainder the vessel is widely patent and free of plaque. PLB: Small-caliber vessel appears widely patent. PDA: Patent with no evidence of plaque. LM: Patent with no evidence of plaque. RI: Patent with no evidence of plaque. LAD: Calcified plaques in the proximal and mid segments of the vessel do not produce any significant stenosis. Diags: Patent with no evidence of plaque. LCX: Patent with no evidence of plaque. OMs: First dominant branch demonstrates minimal calcified irregularities without focal stenosis prox imally. Pericardium: Normal. Pericardial effusion: None. Heart size: Normal. Aortic valve: Trileaflet morphology. Normal systolic excursion. Normal diastolic coaptation. Minimal thickening of the leaflets without calcification. Mitral valve: Normal morphology. No evidence of prolapse on systolic images. No evidence of thickeni ng or calcification. Myocardial attenuation: Normal. No abnormal areas of thickening or thinning. Intracardiac enhancement: No left-sided filling defects to suggest the presence of mass or thrombus . Left atrial appendage is well opacified. Extracardiac findings: Visualized thoracic aorta: Normal caliber. No significant atherosclerotic changes. Pulmonary arteries: Normal caliber. No evidence of central filling defect. Pulmonary veins: Conventional pulmonary venous return. Lungs: No acute appearing air space infiltrates. No suspicious pulmonary nodules. Visualized mediastinum: No mass or fluid collection. No lymphadenopathy. Visualized osseous structures: Normal. Visualized abdomen: No abnormalities. IMPRESSION: Total calcium score: 283.3 Not fully diagnostic segments due to artifacts: None. RCA: Focal loss of visualization over a length of 3 mm in the proximal - mid segment of the vessel. Remainder the vessel is widely patent and free of plaque. LM: Patent with no evidence of plaque. LAD: Calcified plaques in the proximal and mid segments of the vessel do not produce any significant stenosis. LCX: Patent with no evidence of plaque. OMs: First dominant branch demonstrates minimal calcified irregularities without focal stenosis prox imally. RPTAT: AADD Reference images are provided. Reconstructed vessel is named in the top right hand corner. .Francis Jordan MD, MD Date Time Electronically viewed and signed by .Francis Jordan MD, on 04/02/2017 19:41 .B/
[2017-04-02] MEDS: FAMOTIDINE 20 MG TAB PO SCH (22:13)
[2017-04-03] VITALS (15 sets, daily range): BP systolic 104–143; BP diastolic 57–92; PULSE 65–95; RESP 15–31
[2017-04-03 05:43] LABS: WHITE BLOOD COUNT 6.1 10^3/ul (4.8-10.8)
[2017-04-03 05:44] LABS: BASOPHILS % 0.7 % (0.0-2.0); EOSINOPHILS # 0.2 10^3/ul (0.0-0.5); EOSINOPHILS % 2.6 % (0.0-7.0); HEMATOCRIT 36.6 % (37.0-47.0); HEMOGLOBIN 12.1 g/dl (12.0-16.0); LYMPHOCYTES # 2.1 10^3/ul (0.8-2.9); LYMPHOCYTES % 35.3 % (15.0-51.0); MEAN CORPUSCULAR HGB CONC 33.1 g/dl (32.0-37.0); MEAN CORPUSCULAR VOLUME 84.7 fl (82.0-101.0); MEAN PLATELET VOLUME 11.2 fl (7.4-10.4); MONOCYTE # 0.5 10^3/ul (0.3-0.9); MONOCYTES % 7.4 % (0.0-11.0); NEUTROPHILS % 53.7 % (39.0-77.0); PLATELET COUNT 231 10^3/UL (140-415); RED BLOOD COUNT 4.32 10^6/ul (4.20-5.40); RED CELL DISTRIBUTION WIDTH 14.4 % (11.5-14.5)
[2017-04-03 06:01] LABS: PHOSPHORUS 2.8 mg/dl (2.5-4.9)
[2017-04-03 06:20] LABS: ALBUMIN 3.6 g/dl (3.3-4.9); BILIRUBIN,INDIRECT 0.7 mg/dl (0-1.1); BILIRUBIN,TOTAL 0.7 mg/dl (0.2-1.3); CALCIUM 8.8 mg/dl (8.4-10.2); CREATININE 0.69 mg/dl (0.44-1.00); POTASSIUM 3.8 mmol/L (3.5-5.1); TOTAL PROTEIN 7.2 g/dl (6.1-8.1)
[2017-04-03] MEDS ORDERED: CLOPIDOGREL 75 MG TAB PO SCH (09:00)
[2017-04-03] MEDS: ASPIRIN 81 MG TAB PO SCH (09:47)
[2017-04-03] MEDS: FAMOTIDINE 20 MG TAB PO SCH (09:47)
[2017-04-03] MEDS: METOPROLOL 25 MG TAB PO SCH (09:47)
--- NOTE | 2017-04-03 09:48 | PN ---
Date/Time of Note Date/Time of Note DATE: 04/03/17 TIME: 09:18 Assessment/Plan VTE Prophylaxis VTE Prophylaxis Intervention: SCD's Lines/Catheters IV [facility] Peripheral IV Urinary Cath still in place: No Assessment/Plan Assessment/Plan 57-year-old female with: 1. NSTEMI: s/p angiogram and stenting of 99% RCA stenosis, preserved EF 55% on Echo Continue current meds including statins and antiplatelets. Follow up Cardiology recs today. D/c home today with follow up with Cardiology and PCP 2. Hypertension, continue current meds. 3. Hyperlipidemia: patient with Hepatic steatosis Monitor LFTs while on statins. Prophylaxis: Pepcid for GI prophylaxis, SCDs for DVT ppx Disposition: Follow-up cardiology recommendations. D/c home today. Subjective 24 Hr Interval Summary Free Text/Dictation Patient doing well post procedure and to be discharged home today No complaints today and will discharge home today S/p RCA stenting yesterday Exam/Review of Systems Vital Signs Vitals Vital Signs Date Time Temp Pulse Resp B/P Pulse Ox O2 Delivery O2 Flow Rate FiO2 04/03/17 08:00 97.8 65 17 124/60 98 Room Air 04/01/17 18:55 2 Intake and Output 04/02/17 04/02/17 04/03/17 15:00 23:00 07:00 Intake Total 1255 ml 750 ml Output Total 1000 ml 300 ml Balance 255 ml 450 ml Exam Constitutional: alert, oriented, well developed Respiratory: clear to auscultation, normal air movement Cardiovascular: nl pulses, regular rate and rhythm Gastrointestinal: non-tender, soft Musculoskeletal: nl extremities to inspection Extremities: normal pulses, other (no edema, clubbing or cyanosis ) Neurological: [employer] MANAGER II-XII intact, nl mental status, nl speech, nl strength Results Result Diagram: 04/03/17 0454 04/03/17 0454 Results 24 hrs Laboratory Tests Test 04/03/17 04:54 White Blood Count 6.1 Red Blood Count 4.32 Hemoglobin 12.1 Hematocrit 36.6 L Mean Corpuscular Volume 84.7 Mean Corpuscular Hemoglobin 28.0 L Mean Corpuscular Hemoglobin Concent 33.1 Red Cell Distribution Width 14.4 Platelet Count 231 Mean Platelet Volume 11.2 H Neutrophils % 53.7 Lymphocytes % 35.3 Monocytes % 7.4 Eosinophils % 2.6 Basophils % 0.7 Nucleated Red Blood Cells % 0.0 Neutrophils # (Manual) 3.3 Lymphocytes # 2.1 Monocytes # 0.5 Eosinophils # 0.2 Basophils # 0.0 Nucleated Red Blood Cells # 0.0 Sodium Level 142 Potassium Level 3.8 Chloride Level 110 Carbon Dioxide Level 26 Anion Gap 10 Blood Urea Nitrogen 4 L Creatinine 0.69 Glucose Level 86 Calcium Level 8.8 Phosphorus Level 2.8 Magnesium Level 2.0 Total Bilirubin 0.7 Direct Bilirubin 0.00 Indirect Bilirubin 0.7 Aspartate Amino Transf (AST/SGOT) 114 H Alanine Aminotransferase (ALT/SGPT) 146 H Alkaline Phosphatase 170 H Total Protein 7.2 # Albumin 3.6 Globulin 3.60 H Albumin/Globulin Ratio 1.00 Medications Medications Current Medications Metoprolol Tartrate (Lopressor) 25 mg BID PO Last administered on 04/02/17 22: 13; Admin Dose 25 MG; Start 04/01/17 at 23:30 Atorvastatin Calcium (Lipitor) 80 mg HS PO Last administered on 04/02/17 22:13 ; Admin Dose 80 MG; Start 04/01/17 at 23:30 Aspirin (Aspirin) 81 mg DAILY PO Last administered on 04/02/17 08:37; Admin Dose 81 MG; Start 04/02/17 at 09:00 Famotidine (Pepcid) 20 mg BID PO Last administered on 04/02/17 22:13; Admin Dose 20 MG; Start 04/02/17 at 21:00 Clopidogrel Bisulfate (plaVIX) 75 mg DAILY PO ; Start 04/03/17 at 09:00 Acetaminophen (Tylenol Tab) 650 mg Q4H PRN PO NON-CARDIAC PAIN LEVEL 1-3 Last administered on 04/03/17 01:07; Admin Dose 650 MG; Start 04/02/17 at 18:30 Al Hydrox/Mg Hydrox/Simethicone (Mag-Al Plus) 30 ml Q4H PRN PO GASTROINTESTINAL UPSET; Start 04/02/17 at 18:30 Ondansetron HCl (Zofran Inj) 4 mg Q4H PRN IV NAUSEA AND/OR VOMITING; Start 04/02 at 18:30 MILA HAMLIN Apr 03, 2017 09:28
--- NOTE | 2017-04-03 09:51 | PDOCDIS ---
Discharge Instructions CONDITION Patient Condition: Stable HOME CARE INSTRUCTIONS: Diet Instructions: Low Fat /CholesterolSpecial Diet: cardiac ACTIVITY: Activity Restrictions: Slowly Increase Activity Avoid heavy lifting Avoid Heavy Housework FOLLOW UP/APPOINTMENTS Follow-up Plan Follow up with PCP within 1 week Follow up with Cardiology, Dr Barragan in 1 to 2 weeks SCHOOL/WORK RELEASE May return to School/Work on: Apr 17, 2017 MILA HAMLIN Apr 03, 2017 09:51
[2017-04-03] MEDS ORDERED: ASPI81TA3 PO (09:54)
[2017-04-03] MEDS ORDERED: ATOR40TA68 PO (09:54)
[2017-04-03] MEDS ORDERED: FAMO20TA18 PO (09:54)
[2017-04-03] MEDS ORDERED: METO-448 PO (09:54)
--- NOTE | 2017-04-03 11:56 | CONS ---
Date/Time of Note Date/Time of Note DATE: 04/03/17 TIME: 11:54 Assessment/Plan Assessment/Plan Additional Assessment/Plan Non-ST elevation AR CAD, status post PCI to RCA Preserved ejection fraction -Patient status post drug-eluting stenting to RCA yesterday. Doing well postoperatively. Patient to continue aspirin indefinitely and Plavix for minimum of 1 year to maintain stent patency. This was explained to the patient in detail and prescription left in the chart. Continue statin and beta-moo if no contraindication. DC planning Consultation Date/Type/Reason Admit Date/Time Apr 01, 2017 at 19:33 Initial Consult Date Type of Consultation: cv 24 HR Interval Summary Free Text/Dictation Feeling better after PCI. Denies shortness of breath or chest pain or dizziness Exam/Review of Systems Vital Signs Vitals Vital Signs Date Time Temp Pulse Resp B/P Pulse Ox O2 Delivery O2 Flow Rate FiO2 04/03/17 08:00 69 04/03/17 08:00 97.8 17 124/60 98 Room Air 04/01/17 18:55 2 Intake and Output 04/02/17 04/02/17 04/03/17 15:00 23:00 07:00 Intake Total 1255 ml 750 ml Output Total 1000 ml 300 ml Balance 255 ml 450 ml Exam No apparent distress Constitutional: alert, oriented Head: normocephalic Respiratory: other (Coarse breath sounds bilaterally, no wheezing) Cardiovascular: other (S1-S2 heard), regular rate and rhythm Gastrointestinal: bowel sounds, non-tender, other (No guarding), soft Extremities: edema, other (Right wrist is soft, +2 radial pulse, no hematoma) Results Result Diagram: 04/03/17 0454 04/03/17 0454 Results 24 hrs Laboratory Tests Test 04/03/17 04:54 White Blood Count 6.1 Red Blood Count 4.32 Hemoglobin 12.1 Hematocrit 36.6 L Mean Corpuscular Volume 84.7 Mean Corpuscular Hemoglobin 28.0 L Mean Corpuscular Hemoglobin Concent 33.1 Red Cell Distribution Width 14.4 Platelet Count 231 Mean Platelet Volume 11.2 H Neutrophils % 53.7 Lymphocytes % 35.3 Monocytes % 7.4 Eosinophils % 2.6 Basophils % 0.7 Nucleated Red Blood Cells % 0.0 Neutrophils # (Manual) 3.3 Lymphocytes # 2.1 Monocytes # 0.5 Eosinophils # 0.2 Basophils # 0.0 Nucleated Red Blood Cells # 0.0 Sodium Level 142 Potassium Level 3.8 Chloride Level 110 Carbon Dioxide Level 26 Anion Gap 10 Blood Urea Nitrogen 4 L Creatinine 0.69 Glucose Level 86 Calcium Level 8.8 Phosphorus Level 2.8 Magnesium Level 2.0 Total Bilirubin 0.7 Direct Bilirubin 0.00 Indirect Bilirubin 0.7 Aspartate Amino Transf (AST/SGOT) 114 H Alanine Aminotransferase (ALT/SGPT) 146 H Alkaline Phosphatase 170 H Total Protein 7.2 # Albumin 3.6 Globulin 3.60 H Albumin/Globulin Ratio 1.00 Medications Medications Current Medications Metoprolol Tartrate (Lopressor) 25 mg BID PO Last administered on 04/03/17 09: 47; Admin Dose 25 MG; Start 04/01/17 at 23:30 Atorvastatin Calcium (Lipitor) 80 mg HS PO Last administered on 04/02/17 22:13 ; Admin Dose 80 MG; Start 04/01/17 at 23:30 Aspirin (Aspirin) 81 mg DAILY PO Last administered on 04/03/17 09:47; Admin Dose 81 MG; Start 04/02/17 at 09:00 Famotidine (Pepcid) 20 mg BID PO Last administered on 04/03/17 09:47; Admin Dose 20 MG; Start 04/02/17 at 21:00 Clopidogrel Bisulfate (plaVIX) 75 mg DAILY PO Last administered on 04/03/17 09: 47; Admin Dose 75 MG; Start 04/03/17 at 09:00 Acetaminophen (Tylenol Tab) 650 mg Q4H PRN PO NON-CARDIAC PAIN LEVEL 1-3 Last administered on 04/03/17 01:07; Admin Dose 650 MG; Start 04/02/17 at 18:30 Al Hydrox/Mg Hydrox/Simethicone (Mag-Al Plus) 30 ml Q4H PRN PO GASTROINTESTINAL UPSET; Start 04/02/17 at 18:30 Ondansetron HCl (Zofran Inj) 4 mg Q4H PRN IV NAUSEA AND/OR VOMITING; Start 04/02 at 18:30 Renny Barragan DO Apr 03, 2017 11:56
--- NOTE | 2017-04-03 19:34 | RADRPT ---
Vent Rate: 70 bpm RR Interval: 0 msec HI Interval: 170 msec QRS Duration: 94 msec QT Interval: 372 msec QTC Interval: 401 msec P-R-T Cochran: 42 - -13 - -7 degrees Normal sinus rhythm with sinus arrhythmia Normal ECG Electronically Signed By: John Bruce [id number]
--- NOTE | 2017-04-04 15:34 | DS ---
Date/Time of Note Date/Time of Note DATE: 04/04/17 TIME: 15:28 Discharge Summary Admission/Discharge Info Admit Date/Time Apr 01, 2017 at 19:33 Discharge Date/Time Apr 03, 2017 at 12:15 Discharge Diagnosis Coronary artery disease, status post RCA stenting Hypertension Hyperlipidemia Abnormal LFTs with hepatic steatosis Patient Condition: Good Consults Cardiology, Dr. Barragan Procedures CT coronaries Cardiac angiogram Hx of Present Illness 57-year-old female with reported hypertension, also morbid obesity who presented to the emergency department with complaint of dyspnea on exertion, increasing fatigue, occasional orthopnea, no definite chest pain. She was found to have positive troponins and diagnosed with non-ST elevation NH and admitted to telemetry for further cardiac workup. Hospital Course The patient had only mild elevation of her troponin, again she was not having chest pressure. She had a CT coronaries that came back positive, subsequently was taken to the [facility] and found to have 99% stenosis of the RCA requiring stent placement. She was subsequently admitted to the intensive care unit for overnight monitoring, maintained on dual antiplatelet therapy along with statin therapy and beta blockers. With the beta-blockers on board her blood pressure actually has been controlled. Patient was discharged home on postprocedure day #1. She was discharged in stable condition. She is to follow-up with her primary care physician and cardiology. Home Meds Active Scripts Atorvastatin* (Atorvastatin*) 40 Mg Tablet, 40 MG PO QHS, #30 TAB 3 Refills Prov:MILA HAMLIN 04/03/17 Famotidine* (Famotidine*) 20 Mg Tablet, 20 MG PO BID for 30 Days, TAB 3 Refills Prov:MILA HAMLIN 04/03/17 Aspirin (Aspirin) 81 Mg Chew, 81 MG PO DAILY for 30 Days, TAB 11 Refills Prov:MILA HAMLIN 04/03/17 Metoprolol Tartrate* (Lopressor*) 25 Mg Tab, 25 MG PO BID for 30 Days, TAB 3 Refills Prov:MILA HAMLIN 04/03/17 Discontinued Reported Medications Ibuprofen* (Ibuprofen*) 600 Mg Tablet, 600 MG PO BID Y for PAIN, TAB 04/01/17 Hydralazine Hcl* (Hydralazine Hcl*) 25 Mg Tab, 25 MG PO DAILY, #30 TAB 04/01/17 Discontinued Scripts Nitrofurantoin Monohyd Macrocr* (Macrobid*) 100 Mg Capsr, 100 MG PO BID for 5 Days, CAP Prov:LIDA DARDEN I. [employer] 12/12/15 Hydrocodone Bit-Acetaminophen* (Eagle*) 5-325 Mg Tab, 1 TAB PO Q6 Y for PAIN, # 7 TAB Prov:LIDA DARDEN NP 12/12/15 Cyclobenzaprine Hcl* (Cyclobenzaprine Hcl*) 10 Mg Tablet, 10 MG PO TID, #15 TAB Prov:LIDA DARDEN I. [employer]ER 12/12/15 Follow-up Plan Follow-up with cardiology, Dr. Barragan, in the 2-4 weeks Follow-up with primary care physician within 1 week Primary Care Provider Care Physician No Primary Time spent on discharge: > 30 minutes MILA HAMLIN Apr 04, 2017 15:34
== END 2017-04-03 12:15 | disposition home or self-care (01) | DRG 247 ==
LOC: FTE 13:16 → MS4 19:33 → ICU 04-02 18:44
PROVIDERS: ADMIT Legal Medicine; ATTEND Legal Medicine
PROC: B201YZZ Plain Radiography of Multiple Coronary Arteries using Other Contrast (ICD-10-PCS; 2017-04-02)
PROC: 4A023N7 Measurement of Cardiac Sampling and Pressure, Left Heart, Percutaneous Approach (ICD-10-PCS; 2017-04-02)
PROC: 027034Z Dilation of Coronary Artery, One Artery with Drug-eluting Intraluminal Device, Percutaneous Approach (ICD-10-PCS; principal; 2017-04-02 15:30)
PROC: 02703ZZ Dilation of Coronary Artery, One Artery, Percutaneous Approach (ICD-10-PCS; 2017-04-02 15:30)
DX: I21.4 Non-ST elevation (NSTEMI) myocardial infarction (principal); Z68.41 Body mass index [BMI] 40.0-44.9, adult; K76.0 Fatty (change of) liver, not elsewhere classified; I10 Essential (primary) hypertension; E78.5 Hyperlipidemia, unspecified; E66.01 Morbid (severe) obesity due to excess calories; I25.118 Atherosclerotic heart disease of native coronary artery with other forms of angina pectoris
CPT/HCPCS: 36415; 71010; 75571; 75574; 76705; 80048; 80053; 80061; 80076; 82550; 82553; 83036; 83735; 83880; 84100; 84484; 85025; 85378; 85610; 85730; 87081; 93005; 93306; 93458; 96372; 96374; C1725; C1769; C1874; C1887; C9600; J1644; J1650; J2250; J2270; J3010; J3480; J7030; Q9967

== ENCOUNTER 2017-04-07 13:39 | Emergency (ER) | payer OTHER ==
[~2017-04-07] VITALS: Ht 162.6 cm; Wt 96.0 kg
[~2017-04-07 13:39] MED LIST changes: +ASPI81TA3 PO; +ATOR40TA68 PO; -CYCL-319 PO; +FAMO20TA18 PO; -HYDR-3498 PO; +METO-448 PO; -NITR-58 PO
[2017-04-07 14:00] VITALS: Ht 162.6 cm; Wt 96.0 kg
[2017-04-07] MEDS ORDERED: ASPIRIN 81 MG TAB PO ONE (16:00)
[2017-04-07] MEDS ORDERED: NITROGLYCERIN (SL) 0.4 MG TAB SL ONE (16:00)
[2017-04-07] MEDS ORDERED: FUROSEMIDE 40 MG INJ IV ONE (16:00)
[2017-04-07 16:08] LABS: BASOPHILS % 0.6 % (0.0-2.0); EOSINOPHILS # 0.2 10^3/ul (0.0-0.5); EOSINOPHILS % 3.2 % (0.0-7.0); HEMATOCRIT 36.9 % (37.0-47.0); LYMPHOCYTES # 2.1 10^3/ul (0.8-2.9); LYMPHOCYTES % 30.5 % (15.0-51.0); MEAN CORPUSCULAR HEMOGLOBIN 28.4 pg (29.0-33.0); MEAN CORPUSCULAR HGB CONC 32.5 g/dl (32.0-37.0); MEAN CORPUSCULAR VOLUME 87.2 fl (82.0-101.0); MEAN PLATELET VOLUME 11.1 fl (7.4-10.4); MONOCYTE # 0.6 10^3/ul (0.3-0.9); NEUTROPHILS % 56.4 % (39.0-77.0); PLATELET COUNT 213 10^3/UL (140-415); RED BLOOD COUNT 4.23 10^6/ul (4.20-5.40); RED CELL DISTRIBUTION WIDTH 14.6 % (11.5-14.5); WHITE BLOOD COUNT 6.9 10^3/ul (4.8-10.8)
--- NOTE | 2017-04-07 16:24 | RADRPT ---
PROCEDURE: XR Chest. CLINICAL INDICATION: Chest pain TECHNIQUE: Single frontal view of the chest was obtained. COMPARISON: None FINDINGS: The heart is within normal limits. The thoracic aorta is calcified. The lungs are clear. There is no pleural effusion or pneumothorax. RPTAT: AA IMPRESSION: No acute disease. Calcified aorta consistent with atherosclerotic disease. .Terence Melendez MD, MD Date Time Electronically viewed and signed by .Terence Melendez MD, on 04/07/2017 16:24 .S/
[2017-04-07 16:47] LABS: CALCIUM 9.7 mg/dl (8.4-10.2); CREATININE 0.83 mg/dl (0.44-1.00); POTASSIUM 3.8 mmol/L (3.5-5.1)
[2017-04-07 16:55] LABS: TROPONIN-I 0.026 ng/ml (0.00-0.12)
[2017-04-07 17:06] LABS: AADO2 Arterial 18.9 mmHg (7.0-24.0); Allen Test ACCEPTAB; Arterial Base Excess -4.1 mmol/L (-3.0-3); Arterial COHb 0.3 % (0.0-3.0); Arterial HCO3 19.3 mmol/L (22.0-26.0); Arterial MetHb 0.3 % (0.0-1.5); Arterial Total Hemglobin 12.9 g/dl (12.0-18.0); MODE ROOM AIR
--- NOTE | 2017-04-07 17:46 | ERD ---
ER Documentation Chief Complaint Date/Time DATE: 04/07/17 TIME: 17:42 Chief Complaint SOB X2 DAYS, DENIES CHEST PAIN HPI 57-year-old woman complains of shortness of breath 2 days, shortness of breath occurs at rest, she hasHad no lower extremity swelling. She has had no cough, no fevers or chills, no chest pain, no vomiting or diarrhea ROS All systems reviewed and are negative except as per history of present illness. Medications Home Meds Active Scripts Atorvastatin* (Atorvastatin*) 40 Mg Tablet, 40 MG PO QHS, #30 TAB 3 Refills Prov:MILA HAMLIN 04/03/17 Famotidine* (Famotidine*) 20 Mg Tablet, 20 MG PO BID for 30 Days, TAB 3 Refills Prov:MILA HAMLIN 04/03/17 Aspirin (Aspirin) 81 Mg Chew, 81 MG PO DAILY for 30 Days, TAB 11 Refills Prov:MILA HAMLIN 04/03/17 Metoprolol Tartrate* (Lopressor*) 25 Mg Tab, 25 MG PO BID for 30 Days, TAB 3 Refills Prov:MILA HAMLIN 04/03/17 Discontinued Reported Medications Ibuprofen* (Ibuprofen*) 600 Mg Tablet, 600 MG PO BID Y for PAIN, TAB 04/01/17 Hydralazine Hcl* (Hydralazine Hcl*) 25 Mg Tab, 25 MG PO DAILY, #30 TAB 04/01/17 Allergies Allergies: Coded Allergies: codeine (Verified Allergy, Intermediate, generalized rashes, 04/07/17) PMhx/Soc Hypertension History of Surgery: Yes (tubal ligation, ANGIOPLASTY) Anesthesia Reaction: No Hx Neurological Disorder: No Hx Respiratory Disorders: No Hx Cardiac Disorders: Yes (htn and high cholesterol, [place]) Hx Psychiatric Problems: No Hx Miscellaneous Medical Probl: No Hx Alcohol Use: No Hx Substance Use: No Hx Tobacco Use: No Smoking Status: Never smoker FmHx Family History: No diabetes Physical Exam Vitals Vital Signs Date Time Temp Pulse Resp B/P Pulse Ox O2 Delivery O2 Flow Rate FiO2 04/07/17 18:20 80 20 136/86 96 Room Air 04/07/17 15:13 71 20 140/82 100 Room Air 04/07/17 14:00 97.9 70 20 119/82 100 Physical Exam GENERAL: Well-developed, well-nourished, well-hydrated, in no apparent distress , looks nontoxic in appearance HEENT: Moist mucous membranes, pink conjunctiva, no cervical spine tenderness or step-off deformities, no goiter, no jaundice or icterus, extraocular movements intact without pain. No submandibular induration, and no pharyngeal erythema NEURO: Alert and oriented 3, cranial nerves II through XII intact bilaterally, pupils equal round reactive to light, no focal deficits or facial asymmetry, sensation intact distally Strength 5/5 in upper and lower extremities bilaterally CARDIAC: Regular rate and rhythm, no murmurs rubs or gallops LUNGS: Clear bilaterally no wheezing crackles or stridor ABDOMEN: Soft nontender, no guarding, no rigidity, no rebound, no psoas sign no obturator sign. Normoactive bowel sounds SKIN: Warm and dry to touch, no abrasions, contusions, or hematomas, no lacerations, no ecchymosis, no target lesions, and without ulcers EXTREMITIES: No clubbing cyanosis or edema, calves are bilaterally symmetrical, no Homans sign, no popliteal cord sign. Distal pulses equal and bilateral PSYCH: Normal affect without agitation or irritability Result Diagram: 04/07/17 1555 04/07/17 1555 Results 24 hrs Laboratory Tests Test 04/07/17 15:55 04/07/17 16:45 White Blood Count 6.910^3/ul Red Blood Count 4.2310^6/ul Hemoglobin 12.0g/dl Hematocrit 36.9% Mean Corpuscular Volume 87.2fl Mean Corpuscular Hemoglobin 28.4pg Mean Corpuscular Hemoglobin Concent 32.5g/dl Red Cell Distribution Width 14.6% Platelet Count 09129^3/UL Mean Platelet Volume 11.1fl Neutrophils % 56.4% Lymphocytes % 30.5% Monocytes % 9.0% Eosinophils % 3.2% Basophils % 0.6% Nucleated Red Blood Cells % 0.0/100WBC Neutrophils # (Manual) 3.910^3/ul Lymphocytes # 2.110^3/ul Monocytes # 0.610^3/ul Eosinophils # 0.210^3/ul Basophils # 0.010^3/ul Nucleated Red Blood Cells # 0.010^3/ul Sodium Level 140mmol/L Potassium Level 3.8mmol/L Chloride Level 107mmol/L Carbon Dioxide Level 28mmol/L Anion Gap 9 Blood Urea Nitrogen 11mg/dl Creatinine 0.83mg/dl Glucose Level 114mg/dl Calcium Level 9.7mg/dl Troponin I 0.026ng/ml B-Type Natriuretic Peptide 73PG/ML Blood Gas Specimen Source Blood arterial Arterial Blood Date Drawn 04/07/2017 4:58:34 PM Arterial Blood pH (Temp corrected) 7.421 Arterial Blood pCO2 (Temp correct) 30.3mmhg Arterial Blood pO2 (Temp corrected) 94.5mmHG Arterial Blood HCO3 19.3mmol/L Arterial Blood Base Excess -4.1mmol/L Arterial Blood Oxygen Saturation 96.6mmHG Luis Test ACCEPTAB Arterial Blood Gas Puncture Site Right Radial Arterial Blood Carboxyhemoglobin 0.3% Arterial Blood Methemoglobin 0.3% Blood Gas A-a O2 Differential 18.9mmHg Oxyhemoglobin Percent 96.0% Total Hemoglobin 12.9g/dl Blood Gas Temperature 37.0C Blood Gas Modality ROOM AIR FiO2 21.0% Blood Gas Notified Whom M.D. Blood Gas Notified Time 04/07/2017 5:06:02 PM Current Medications Medications (Trade) Dose Ordered Sig/Ethel Route PRN Reason Start Time Stop Time Status Last Admin Dose Admin Furosemide (Lasix) 40 mg ONCE ONCE IV 04/07/17 16:00 04/07/17 16:01 DC 04/07/17 16:49 Aspirin (Aspirin) 324 mg ONCE ONCE PO 04/07/17 16:00 04/07/17 16:01 DC 04/07/17 16:44 Nitroglycerin (Nitroglycerin (Sl Tab) 0.4 Mg) 1 tab ONCE ONCE SL 04/07/17 16:00 04/07/17 16:01 DC 04/07/17 16:45 Procedures/MDM IV line was established patient was placed on shelter monitor rhythm strip revealed a sinus rhythm at about 70 bpm with upright P and T waves. Patient was afebrile. EKG performed, read by me revealed a normal sinus rhythm at 71 bpm, normal axis , narrow QRS complex, no concerning ST elevations noted. EKG performed 3 hours after the first one, read by me: 72 bpm, normal sinus rhythm, normal axis, no acute ST segment changes, narrow QRS complex, with good R-wave progression in precordial leads. One AP view of the chest performed, read by me reveals no acute infiltrates, normal mediastinum, sharp costophrenic and cardiac borders, no air under the diaphragm. Otherwise unremarkable chest x-ray. Patient's vital signs are normal, pulse is 70 bpm, respiratory rate 16 breaths per minute, oxygen saturation on room air is 100%. ABG performed on room air revealed a pH of 7.42, PCO2 30, PO2 95, mild hyperventilation, otherwise normal. CBC and electrolytes were normal, troponin negative, BNP negative. Differential diagnoses considered, included but not limited to acute coronary syndrome, pulmonary embolism, aortic dissection, abdominal aortic aneurysm, sepsis, stroke, meningitis, encephalitis, pneumonia, appendicitis, cholecystitis , bowel obstruction, pyelonephritis, nephrolithiasis, cystitis, as well as metabolic, hematologic, and electrolyte abnormalities. As well as abscess, cellulitis, fractures, and dislocations. Patient feels much better at this time, and vital signs are normal, symptoms have improved. I did give strict instructions to return to the ED if symptoms continue or worsen, patient will otherwise follow-up with primary care physician. Patient understood instructions and agreed to plan. Disclaimer: Inadvertent spelling and grammatical errors are likely due to EHR/ dictation software use and do not reflect on the overall quality of patient care. Also, please note that the electronic time recorded on this note does not necessarily reflect the actual time of the patient encounter. Departure Diagnosis: Primary Impression: Shortness of breath Additional Impression: Hypertension Hypertension type: essential hypertension Qualified Code: I10 - Essential hypertension Condition: Good Patient Instructions: Coping with Shortness of Breath: Controlling Stress, High Blood Pressure (Hypertension) VANESSA HOPPER MD Apr 07, 2017 17:46 VANESSA HOPPER MD Apr 07, 2017 17:46
[2017-04-07 18:20] VITALS: BP 136/86; PULSE 80; RESP 20
== END 2017-04-07 18:23 | disposition home or self-care (01) ==
LOC: FTE 13:39 → E/R 18:23
DX: R06.02 Shortness of breath (principal); I10 Essential (primary) hypertension; Z79.82 Long term (current) use of aspirin
CPT/HCPCS: 36415; 36600; 71010; 80048; 82803; 83880; 84484; 85025; 93005; 96374; J1940; Z7502; Z7610

== ENCOUNTER 2017-04-14 13:47 | Emergency (ER) | payer OTHER ==
[~2017-04-14] VITALS: Ht 160 cm; Wt 80.0 kg
[2017-04-14 13:51] VITALS: Ht 160 cm; Wt 80.0 kg
[2017-04-14] MEDS ORDERED: NAPROXEN 500 MG TAB PO ONE (16:30)
[2017-04-14] MEDS ORDERED: ACETAMINOPHEN 325 MG TAB PO ONE (16:30)
--- NOTE | 2017-04-14 16:40 | RADRPT ---
PROCEDURE: US upper extremity Venous. CLINICAL INDICATION: Right arm edema , pain TECHNIQUE: Multiple sonographic images of the right upper extremity venous system was obtained uti lizing grayscale, color-flow, compressive sonography and doppler imaging with augmentation. The victorina ges were reviewed on a PACS workstation. COMPARISON: None. FINDINGS: There is normal compressibility and flow within the right internal jugular vein, subclavian vein, ax illary vein, brachial, basilic, cephalic, radial and ulnar veins. RPTAT: AA IMPRESSION: No sonographic evidence for venous thrombosis. .Terence Melendez MD, MD Date Time Electronically viewed and signed by .Terence Melendez MD, on 04/14/2017 16:40 .S/
--- NOTE | 2017-04-14 18:25 | RADRPT ---
PROCEDURE: XR Forearm Right CLINICAL INDICATION: Pain TECHNIQUE: Two views of the forearm. COMPARISON: None. FINDINGS: There are no fractures or dislocations. The mineralization is normal. There is a faint radiopaque d ensity dorsal to the proximal ulna. IMPRESSION: 1. No acute osseous abnormality. 2. Faint radiopaque density dorsal to the proximal ulnar diaphysis. RPTAT: PP .Jhony Martins MD, MD Date Time Electronically viewed and signed by .Jhony Martins MD, on 04/14/2017 18:25 .d/
[2017-04-14] MEDS ORDERED: IBUP-1542 PO (18:32)
[2017-04-14 18:51] VITALS: BP 116/62; PULSE 77; RESP 18; TEMP 98.1
--- NOTE | 2017-04-14 20:42 | ERD ---
ER Documentation Chief Complaint Date/Time DATE: 04/14/17 TIME: 20:38 Chief Complaint right arm pain HPI This patient is a 57-year-old female presenting to the emergency department with complaints of constant, 10 out of 10 right arm pain for the past 2 weeks. Symptoms are worsening. This began after she had a catheter inserted in her right arm for stent placement after an NSTEMI. She denies any chest pain, shortness of breath, fevers, chills, left arm pain, left jaw pain, or other symptoms currently. She has been taking no medication for relief of symptoms. No other alleviating, aggravating, or other symptoms reported at this time. ROS All systems reviewed and are negative except as per history of present illness. Medications Home Meds Active Scripts Ibuprofen* (Motrin*) 600 Mg Tab, 600 MG PO Q6, #30 TAB Prov:DANY TRUJILLO PA-C 04/14/17 Atorvastatin* (Atorvastatin*) 40 Mg Tablet, 40 MG PO QHS, #30 TAB 3 Refills Prov:MILA HAMLIN 04/03/17 Famotidine* (Famotidine*) 20 Mg Tablet, 20 MG PO BID for 30 Days, TAB 3 Refills Prov:MILA HAMLIN 04/03/17 Aspirin (Aspirin) 81 Mg Chew, 81 MG PO DAILY for 30 Days, TAB 11 Refills Prov:MILA HAMLIN 04/03/17 Metoprolol Tartrate* (Lopressor*) 25 Mg Tab, 25 MG PO BID for 30 Days, TAB 3 Refills Prov:MILA HAMLIN 04/03/17 Allergies Allergies: Coded Allergies: codeine (Verified Allergy, Intermediate, generalized rashes, 04/07/17) PMhx/Soc History of Surgery: Yes (tubal ligation, ANGIOPLASTY) Anesthesia Reaction: No Hx Neurological Disorder: No Hx Respiratory Disorders: No Hx Cardiac Disorders: Yes (htn and high cholesterol, [place]) Hx Psychiatric Problems: No Hx Miscellaneous Medical Probl: No Hx Alcohol Use: No Hx Substance Use: No Hx Tobacco Use: No Smoking Status: Never smoker Physical Exam Vitals Vital Signs Date Time Temp Pulse Resp B/P Pulse Ox O2 Delivery O2 Flow Rate FiO2 04/14/17 18:51 98.1 77 18 116/62 99 04/14/17 13:51 98.1 58 18 119/58 99 Physical Exam Const: Nontoxic, well-appearing female in no acute distress. Head: Atraumatic Eyes: Normal Conjunctiva ENT: Normal External Ears, Nose and Mouth. Neck: Full range of motion..~ No meningismus. Resp: Clear to auscultation bilaterally Cardio: Regular rate and rhythm, no murmurs Abd: Soft, non tender, non distended. Normal bowel sounds Skin: No petechiae or rashes Back: No midline or flank tenderness Ext: No cyanosis, or edema. There is tenderness to palpation subjectively of the right arm from the wrist to the shoulder. Full range of motion of all joints of the right upper extremity. No significant erythema or edema of the right upper extremity. 2+ radial pulses noted in the right upper extremity. Neur: Awake and alert Psych: Normal Mood and Affect Results 24 hrs Current Medications Medications (Trade) Dose Ordered Sig/Ethel Route PRN Reason Start Time Stop Time Status Last Admin Dose Admin Naproxen (Naprosyn) 500 mg ONCE ONCE PO 04/14/17 16:30 04/14/17 16:31 DC 04/14/17 16:58 Acetaminophen (Tylenol Tab) 650 mg ONCE ONCE PO 04/14/17 16:30 04/14/17 16:31 DC 04/14/17 16:54 Procedures/MDM 57-year-old female presenting to the emergency department with complaints of right upper extremity pain. Physical examination is benign. Imaging: PROCEDURE: US upper extremity Venous. CLINICAL INDICATION: Right arm edema , pain TECHNIQUE: Multiple sonographic images of the right upper extremity venous system was obtained utilizing grayscale, color-flow, compressive sonography and doppler imaging with augmentation. The images were reviewed on a PACS workstation. COMPARISON: None. FINDINGS: There is normal compressibility and flow within the right internal jugular vein , subclavian vein, axillary vein, brachial, basilic, cephalic, radial and ulnar veins. RPTAT: AA IMPRESSION: No sonographic evidence for venous thrombosis. .Terence Melendez MD, Date Time Electronically viewed and signed by .Terence Melendez MD, MD on 04/14/2017 16: 40 PROCEDURE: XR Forearm Right CLINICAL INDICATION: Pain TECHNIQUE: Two views of the forearm. COMPARISON: None. FINDINGS: There are no fractures or dislocations. The mineralization is normal. There is a faint radiopaque density dorsal to the proximal ulna. IMPRESSION: 1. No acute osseous abnormality. 2. Faint radiopaque density dorsal to the proximal ulnar diaphysis. RPTAT: PP .Jhony Martins MD, MD Date Time Electronically viewed and signed by .Jhony Martins MD, MD on 04/14/2017 18:25 Patient was treated in the department with Tylenol and ibuprofen and is feeling improved prior to discharge. There is no sign of DVT, fracture, or other emergent conditions after workup in the department. The patient may take naproxen at home as needed for pain. Her symptoms may be secondary to general pain after the procedure entering in the right upper extremity 2 weeks ago. She is to follow-up with the jig worker. She is to follow-up with her primary care physician. She is to return immediately for any new or worsening symptoms. Departure Diagnosis: Primary Impression: Right arm pain Condition: Fair Patient Instructions: Muscle Strain, Extremity Referrals: [facility] YOU HAVE RECEIVED A MEDICAL SCREENING EXAM AND THE RESULTS INDICATE THAT YOU DO NOT HAVE A CONDITION THAT REQUIRES URGENT TREATMENT IN THE EMERGENCY DEPARTMENT. FURTHER EVALUATION AND TREATMENT OF YOUR CONDITION CAN WAIT UNTIL YOU ARE SEEN IN YOUR DOCTORS OFFICE WITHIN THE NEXT 1-2 DAYS. IT IS YOUR RESPONSIBILITY TO MAKE AN APPOINTMENT FOR [facility]. IF YOU HAVE A PRIMARY DOCTOR --you should call your primary doctor and schedule an appointment IF YOU DO NOT HAVE A PRIMARY DOCTOR YOU CAN CALL OUR PHYSICIAN REFERRAL HOTLINE AT IF YOU CAN NOT AFFORD TO SEE A PHYSICIAN YOU CAN CHOSE FROM THE FOLLOWING [facility] [address] [facility] [address] [facility] [address] [facility] [address] [facility] [facility] [address] [facility]. [facility] [address] Additional Instructions: Follow up with your PCP within the next 1-3 days for a repeat evaluation. If you require a referral to a specialist, your Primary Care Provider may be able to provide this for you. In most patient cases, a referral is not required. If you have further questions regarding this matter, please ask your Primary Care Provider. Return the the emergency department immediately if symptoms worsen or change. If you have any questions regarding medications, ask your pharmacist or us before you leave. If any adverse reactions, occur while taking your medications, discontinue the treatment and return to the emergency department immediately. If any new or worsening symptoms, uncontrolled fevers, or other unexplained symptoms occur, return to the emergency department immediately. Take your medications as directed, and complete the entire course of treatment. DANY TRUJILLO PA-C Apr 14, 2017 20:42
== END 2017-04-14 18:51 | disposition home or self-care (01) ==
LOC: FTE 13:47
DX: M79.601 Pain in right arm (principal); I10 Essential (primary) hypertension; Z79.82 Long term (current) use of aspirin
CPT/HCPCS: 73090; 93971; Z7502; Z7610

== ENCOUNTER 2017-06-02 12:23 | Emergency (ER) | payer OTHER ==
[~2017-06-02] VITALS: Wt 96.8 kg
[~2017-06-02 12:23] MED LIST changes: +IBUP-1542 PO
[2017-06-02] MEDS ORDERED: NITROGLYCERIN 2% 1 GM OINT PKT TD STA (12:49)
[2017-06-02] MEDS ORDERED: ASPIRIN 81 MG TAB PO STA (12:49)
[2017-06-02] MEDS ORDERED: NITROGLYCERIN (SL) 0.4 MG TAB SL PRN (13:00)
--- NOTE | 2017-06-02 13:34 | RADRPT ---
PROCEDURE: Chest x-ray CLINICAL INDICATION: Chest pain TECHNIQUE: Chest single view COMPARISON: 04/07/2017 FINDINGS: The heart is normal in size. The pulmonary vessels are normal in caliber. The lungs are clear. Th e costophrenic angles are sharp. The visualized bony thorax is unremarkable. IMPRESSION: No acute cardiopulmonary disease. Stable mild atherosclerotic aortic calcification RPTAT: HH .Rip Hernandez MD, MD Date Time Electronically viewed and signed by .Rip Hernandez MD, on 06/02/2017 13:33 .W/
[2017-06-02 14:55] VITALS: BP 102/66; PULSE 66; RESP 20
[2017-06-02] MEDS ORDERED: SOD CHLORIDE 0.9% 100 ML ONE (15:04)
[2017-06-02] MEDS ORDERED: IOHEXOL 100 ML ONE (15:04)
[2017-06-02] MEDS ORDERED: IOHEXOL 350MG/ML 50 ML BTL ONE (15:04)
--- NOTE | 2017-06-02 15:36 | RADRPT ---
PROCEDURE: CTA Chest with IV contrast. CLINICAL INDICATION: Chest pain and shortness of breath. TECHNIQUE: The study was performed utilizing a multidetector CT scanner. Direct spiral axial secti ons were obtained from the thoracic inlet through the upper abdomen before and after the injection o f 110 cc Omnipaque 350 intravenous contrast material and reformatted at 1.25 mm. 3D, coronal and sag ittal reformations were obtained. The images were reviewed on a PACS workstation. DLP = 644.6 mGy-c m.CTDiVol = 35.2, 18.8 mGy. One or more of the following post reduction techniques were used: - Automated exposure control. - Adjustment of the mA and/or Kv according to patient's size. - Use of iterative reconstruction technique COMPARISON: No prior studies are available for comparison. FINDINGS: No pulmonary arterial filling defects to indicate pulmonary embolus are identified. Heart size is within normal limits. Coronary artery calcifications are identified. No hilar or medi astinal lymphadenopathy is identified. The visualized portions of the inferior thyroid appear unrem arkable. Mild calcified atherosclerosis is noted in the arch of the aorta. The thoracic esophagus ap pears normal. Minimal dependent, subsegmental atelectasis is noted in both lungs. Diffuse fatty infiltration of the liver is identified. Cholecystectomy clips are seen in the gallbla dder fossa. Mild to moderate degenerative changes are identified in the spine. The subcutaneous and muscular so ft tissues surrounding the chest are unremarkable. IMPRESSION: No visualized pulmonary embolus. Minimal dependent, subsegmental atelectasis in both lungs. Diffuse fatty infiltration of the liver. Degenerative changes in the spine and calcified atherosclerosis in the arterial vasculature. RPTAT: AA .Roger Tucker MD, MD Date Time Electronically viewed and signed by .Roger Tucker MD, MD on 06/02/2017 15:35 .P/
--- NOTE | 2017-06-02 15:42 | ERD ---
ER Documentation Chief Complaint Chief Complaint SOB SINCE YESTERDAY, EPIGASTRIC PAIN STARTED YESTERDAY HX CARDIAC HPI Patient is a 57-year-old with coronary disease, hypertension, and high cholesterol who presents with shortness of breath. She said it started last night but was worse today. She denies chest pain. She says "it is hard getting my breath". She said the symptoms come and go. She is speaking in full sentences. She has no treatment as of yet. Upon review of old medical records this is the patient's fifth visit to the ER since 2016. ROS All systems reviewed and are negative except as per history of present illness. Medications Home Meds Active Scripts Ibuprofen* (Motrin*) 600 Mg Tab, 600 MG PO Q6, #30 TAB Prov:DANY TRUJILLO PA-C 04/14/17 Atorvastatin* (Atorvastatin*) 40 Mg Tablet, 40 MG PO QHS, #30 TAB 3 Refills Prov:BOUBACAR,NTommieBARRINGTONPANKAJ Mendez 04/03/17 Famotidine* (Famotidine*) 20 Mg Tablet, 20 MG PO BID for 30 Days, TAB 3 Refills Prov:BOUBACAR,NTommieBARRINGTONPANKAJ Mendez 04/03/17 Aspirin (Aspirin) 81 Mg Chew, 81 MG PO DAILY for 30 Days, TAB 11 Refills Prov:BOUBACAR,NTommieBARRINGTONPANKAJ Mendez 04/03/17 Metoprolol Tartrate* (Lopressor*) 25 Mg Tab, 25 MG PO BID for 30 Days, TAB 3 Refills Prov:BOUBACAR,NTommieBARRINGTONPANKAJ Mednez 04/03/17 Allergies Allergies: Coded Allergies: codeine (Verified Allergy, Intermediate, generalized rashes, 04/07/17) PMhx/Soc History of Surgery: Yes (tubal ligation, ANGIOPLASTY) Anesthesia Reaction: No Hx Neurological Disorder: No Hx Respiratory Disorders: No Hx Cardiac Disorders: Yes (htn and high cholesterol, [place]) Hx Psychiatric Problems: No Hx Miscellaneous Medical Probl: No Hx Alcohol Use: No Hx Substance Use: No Hx Tobacco Use: No FmHx Family History: coronary disease Physical Exam Vitals Vital Signs Date Time Temp Pulse Resp B/P Pulse Ox O2 Delivery O2 Flow Rate FiO2 06/02/17 14:55 66 20 102/66 98 Nasal Cannula 2.0 06/02/17 13:07 Nasal Cannula 2 06/02/17 12:28 97.1 55 20 125/76 100 Physical Exam Const: Mild distress secondary to shortness of breath Head: Atraumatic Eyes: Normal Conjunctiva ENT: Normal External Ears, Nose and Mouth. Neck: Full range of motion..~ No meningismus. Resp: Clear to auscultation bilaterally Cardio: Regular rate and rhythm, no murmurs Abd: Soft, non tender, non distended. Normal bowel sounds Skin: No petechiae or rashes Back: No midline or flank tenderness Ext: No cyanosis, or edema Neur: Awake and alert Psych: Normal Mood and Affect Result Diagram: 06/02/17 1300 06/02/17 1300 Results 24 hrs Laboratory Tests Test 06/02/17 13:00 White Blood Count 9.010^3/ul Red Blood Count 4.0110^6/ul Hemoglobin 11.6g/dl Hematocrit 35.1% Mean Corpuscular Volume 87.5fl Mean Corpuscular Hemoglobin 28.9pg Mean Corpuscular Hemoglobin Concent 33.0g/dl Red Cell Distribution Width 14.5% Platelet Count 36960^3/UL Mean Platelet Volume 10.3fl Neutrophils % 63.5% Lymphocytes % 27.4% Monocytes % 4.8% Eosinophils % 3.1% Basophils % 0.8% Nucleated Red Blood Cells % 0.0/100WBC Neutrophils # 5.710^3/ul Lymphocytes # 2.510^3/ul Monocytes # 0.410^3/ul Eosinophils # 0.310^3/ul Basophils # 0.110^3/ul Nucleated Red Blood Cells # 0.010^3/ul Sodium Level 140mmol/L Potassium Level 4.1mmol/L Chloride Level 106mmol/L Carbon Dioxide Level 27mmol/L Anion Gap 11 Blood Urea Nitrogen 13mg/dl Creatinine 0.80mg/dl Glucose Level 132mg/dl Calcium Level 9.0mg/dl Troponin I < 0.012ng/ml Current Medications Medications (Trade) Dose Ordered Sig/Ethel Route PRN Reason Start Time Stop Time Status Last Admin Dose Admin Aspirin (Aspirin) 162 mg ONCE STAT PO 06/02/17 12:49 06/02/17 12:50 DC 06/02/17 13:06 Nitroglycerin (Nitroglycerin 2% Oint) 1 inch ONCE STAT TD 06/02/17 12:49 06/02/17 12:50 DC 06/02/17 13:06 Nitroglycerin 1 tab 1 tab Q5M UP TO 3 DOSES PRN SL CHEST PAIN 06/02/17 13:00 Sodium Chloride 100 ml @ ud STK-MED ONCE .ROUTE 06/02/17 15:04 06/02/17 15:05 DC Iohexol (Omnipaque) 100 ml @ ud STK-MED ONCE .ROUTE 06/02/17 15:04 06/02/17 15:05 DC Iohexol (Omnipaque 350mg/ ml) 50 ml STK-MED ONCE .ROUTE 06/02/17 15:04 06/02/17 15:05 DC Procedures/MDM EKG read by me: Rate/Rhythm: Regular rate and rhythm at a rate of 71 Intervals: Normal Impression: No evidence of ischemia or arrhythmia Chest x-ray negative per radiology. CT scan of the chest negative for PE or aortic dissection per radiology. Patient is a 57-year-old female with cardiac risk factors who presents with shortness of breath. Her laboratory studies show anemia with a hemoglobin of 11.6 but she does not require transfusion. Troponin was negative. EKG shows no signs of ischemia or arrhythmia. Chest x-ray and CT scan of the chest were negative. I spoke with Dr. Charles for admission who does not feel the patient requires admission the hospital at this time and did recommend outpatient management. I did speak with the patient and she is agreeable to trying outpatient management but I told her to return immediately if she develops chest pain or worsening symptoms. The patient can return for any worsening symptoms. I doubt pneumonia, pneumothorax, pulmonary embolism, or aortic dissection. Departure Diagnosis: Primary Impression: Dyspnea Dyspnea type: unspecified Qualified Code: R06.00 - Dyspnea, unspecified type Additional Impression: Epigastric pain Condition: Fair Patient Instructions: Dyspnea, Epigastric Pain (Uncertain Cause) Referrals: Your doctor Additional Instructions: Llame al doctor MAANA y vandana charles VICKIE PARA DENTRO DE 1-2 CARABALLO.Dgale a la secretaria que nosotros le instruimos hacer esta vcikie.Avise o llame si vu condicin se empeora antes de la vickie. Regresa aqui si peor o no mejor. LISSETTE ZAMARRIPA MD Jun 02, 2017 15:42
== END 2017-06-02 16:40 | disposition home or self-care (01) ==
LOC: E/R 12:23
DX: R06.00 Dyspnea, unspecified (principal); R10.13 Epigastric pain; I10 Essential (primary) hypertension; I25.2 Old myocardial infarction; Z79.82 Long term (current) use of aspirin
CPT/HCPCS: 36415; 71010; 71275; 80048; 84484; 85025; 93005; Q9967; Z7502; Z7610

== ENCOUNTER 2017-11-03 14:02 | Emergency (ER) | END 2017-11-03 14:44 | disposition home or self-care (01) ==

== ENCOUNTER 2019-01-08 07:58 | Day surgery (SDC) | payer OTHER ==
[~2019-01-08] VITALS: Ht 154.9 cm; Wt 82.8 kg
[~2019-01-08 07:58] MED LIST changes: +ASPI-817 PO; -ASPI81TA3 PO; +CLOP75TA27 PO; +CLOT30CR24 TOP; +ETOMIDATE 20 MG INJ ONE; +HC30CR25 TOP; +LEVO25TA6 PO; +LOSA50TA14 PO; +OMEP40CA6 PO; +SPIR25TA PO; +SULF-182 PO; +TRIA15CR55 TOP
[2019-01-08 08:46] VITALS: Ht 154.9 cm; Wt 82.8 kg
[2019-01-08] MEDS ORDERED: FURO20TA3 PO (09:04)
[2019-01-08] MEDS ORDERED: GABA300C16 PO (09:04)
[2019-01-08] MEDS ORDERED: ESCI10TA48 PO (09:04)
[2019-01-08 09:36] VITALS: BP 132/74; PULSE 64; RESP 18
[2019-01-08] MEDS ORDERED: LIDOCAINE 2% (SDV) 5 ML INJ ONE (09:49)
[2019-01-08] MEDS ORDERED: PROPOFOL 20 ML ONE (09:49)
[2019-01-08] MEDS ORDERED: FENTAnyl 50 MCG/ML VIAL ONE (09:49)
--- NOTE | 2019-01-08 09:54 | PREAC ---
Date/Time of Note Date/Time of Note DATE: 01/08/19 TIME: 09:53 Anesthesia Eval and Record Evaluation Time Pre-Procedure Interview DATE: 01/08/19 TIME: 09:53 Age 58 Sex female NPO: 8 hrs Preoperative diagnosis gerd screening Planned procedure egd colonoscopy Past Medical History Past Medical History: Includes Cardio: HTN, [place], CAD Endo: Hypothyroid Pulm: Sleep Apnea Hepatic: Hepatitis Surgery & Anesthesia Issues No known issue Meds Anticoagulation: No Beta Chu within 24 hr: No Reason Beta Chu not given: Pt. not on B-Chu Active Scripts Spironolactone* (Aldactone*) 25 Mg Tablet, 25 MG PO DAILY for 30 Days, TAB Prov:AIXA DE LA CRUZ MD 08/15/17 Reported Medications Escitalopram Oxalate* (Escitalopram Oxalate*) 10 Mg Tablet, 10 MG PO DAILY, #30 TAB 01/08/19 Furosemide* (Furosemide*) 20 Mg Tablet, 20 MG PO BID, #30 TAB 01/08/19 Gabapentin* (Gabapentin*) 300 Mg Capsule, 300 MG PO BID, #60 CAP 01/08/19 Atorvastatin* (Atorvastatin*) 40 Mg Tablet, 40 MG PO QHS, #30 TAB 08/14/17 Ibuprofen* (Ibuprofen*) 600 Mg Tablet, 600 MG PO BID, TAB 08/14/17 Metoprolol Tartrate* (Lopressor*) 25 Mg Tab, 25 MG PO BID, #60 TAB 08/14/17 Aspirin* (Aspirin* EC) 81 Mg Tablet.dr, 81 MG PO DAILY, TAB 08/14/17 Losartan Potassium* (Losartan Potassium*) 50 Mg Tablet, 50 MG PO DAILY, TAB 08/14/17 Omeprazole* (Omeprazole*) 40 Mg Capsule.dr, 40 MG PO DAILY, #30 CAP 08/14/17 Clopidogrel Bisulfate (Clopidogrel) 75 Mg Tablet, 75 MG PO DAILY, #30 TAB 18 Levothyroxine Sodium* (Levothyroxine Sodium*) 25 Mcg Tablet, 25 MCG PO BEFORE BREAKFAST, #30 TAB 08/14/17 Discontinued Reported Medications Famotidine* (Famotidine*) 20 Mg Tablet, 20 MG PO BID, #60 TAB 08/14/17 Sulfamethoxazole/Trimethoprim (Sulfamethoxazole-Tmp Ds Tablet) 1 Each Tablet, 1 EACH PO BID, TAB 08/14/17 Discontinued Scripts Hydrocortisone* Topical (Hydrocortisone* Topical) 2.5%-28.3 Gm Cream..g., 1 APPLIC TOP BID, #1 TUB Prov:MADONNA JOHNSON PA-C 11/28/17 Clotrimazole* (Clotrimazole* AF) 1% - 30 Gm Cream.gm., 1 APPLIC TOP BID for 7 Days, #2 TUB Prov:MADONNA JOHNSON PA-C 11/28/17 Clotrimazole* (Clotrimazole* AF) 1% - 30 Gm Cream.gm., 1 APPLIC TOP BID for 14 Days, TUB Apply to feet. Prov:GURU LERNER. CALL TAKER 11/03/17 Triamcinolone Acetonide (Triamcinolone Acetonide) 0.1% - 15 Gm Cream.gm., 1 APPLIC TOP BID, #1 TUB Apply to rash on neck Prov:GURU LERNER. CALL TAKER 11/03/17 Meds reviewed: Yes Allergies Coded Allergies: codeine (Verified Allergy, Intermediate, generalized rashes, 01/08/19) Allergies Reviewed: Yes Labs/Studies Labs Reviewed: Reviewed by anesthesiologist test: N/A Pre-procedure Exam Last vitals Vital Signs Date Temp Pulse Resp B/P (MAP) Pulse Ox O2 O2 Flow FiO2 Time Delivery Rate 01/08/19 97.6 64 18 132/74 99 Room Air 09:36 (93) Airway: Adequate mouth opening, Adequate thyromental dist Mallampati: Mallampati IV Teeth: Normal Lung: Normal Heart: Normal ASA Physical Status ASA physical status: 3 Emergency: None Pre-operative Attestations Prior to commencing anesthesia and surgery, the patient was re-evaluated, there was verification of: *The patient's identity *The results of appropriate recent lab work and preoperative vital signs *The above evaluation not changing prior to induction *Anesthetic plan, risk benefits, alternative and complications discussed with patient/family; questions answered; patient/family understands, accepts and wishes to proceed. MOISE MORSE DO Jan 08, 2019 09:54
--- NOTE | 2019-01-08 10:22 | PAC ---
Date/Time of Note Date/Time of Note DATE: 01/08/19 TIME: 10:21 Post-Anesthesia Notes Post-Anesthesia Note Last documented vital signs Vital Signs Date Temp Pulse Resp B/P (MAP) Pulse Ox O2 O2 Flow FiO2 Time Delivery Rate 01/08/19 98 70 18 125/68 99 Room Air 1015 Activity: WNL Respiratory function: WNL Cardiovascular function: WNL Mental status: Baseline Pain reasonably controlled: Yes Hydration appropriate: Yes Nausea/Vomiting absent: Yes MOISE MORSE DO Jan 08, 2019 10:21
[2019-01-08 10:52] VITALS: BP 130/69; RESP 17
== END 2019-01-08 13:17 | disposition home or self-care (01) ==
LOC: GIL 07:58
PROVIDERS: ATTEND Internal Medicine Gastroenterology
DX: Z12.11 Encounter for screening for malignant neoplasm of colon (principal); K29.30 Chronic superficial gastritis without bleeding; K64.9 Unspecified hemorrhoids; K20.8 Other esophagitis
CPT/HCPCS: 43239; 45378; 88305; 88312; J3010; Z7610